=== PATIENT | male | born 1940 | race Caucasian/White ===

== ENCOUNTER 2023-08-06 14:27 | Inpatient (IN) | payer MEDICARE, SELFPAY ==
--- NOTE | ~2023-08-06 | CT_ITS ---
EXAMINATION: CT ABDOMEN AND PELVIS WITHOUT CONTRAST CLINICAL INFORMATION: Rectal pain. COMPARISON: None available. TECHNIQUE: Multidetector volumetric imaging was performed from the superior aspect of the liver through the pubic symphysis. Sagittal and coronal reformatted images were obtained on the technologist's workstation. This CT examination was performed using dose optimization techniques as appropriate, variously including the following: *Automated exposure control *Adjustment of mA and/or kV according to patient size (this includes techniques or standardized protocols for targeted exams where dose is matched to indication/reason for exam; i.e. extremities or head) *Use of iterative reconstruction technique DLP: 499 mGy-cm. FINDINGS: LUNG BASES: The visualized lung bases are unremarkable. LIVER, GALLBLADDER, AND BILIARY TREE: The liver is normal in size, shape, and attenuation. No focal hepatic lesion or biliary ductal dilatation is present. There is mild edema seen around the gallbladder, which is probably secondary to the retroperitoneal inflammatory process rather than gallbladder disease. Gallbladder is unremarkable with no evidence of radiopaque gallstones. PANCREAS: Marked edematous changes seen surrounding the pancreas. MESENTERY/RETROPERITONEUM/PERITONEUM: Diffuse edematous changes are seen in the small bowel mesentery as well as around the pancreas. There is a heterogeneous, ill-defined, solid-appearing mass in the mesentery measuring about 15.5 x 5.1 x 7.5 cm (2:48) Edematous changes are also present in the perirectal space. There is free fluid present in the abdomen around the liver and spleen, in the lateral conal fascia and with a small amount in the pelvis. The left psoas muscle is larger than the right, and in the retrorenal area there is a lobular mass present measuring 3.4 x 4.2 x 5.1 cm. SPLEEN: The spleen is normal in size. ADRENAL GLANDS: Unremarkable. KIDNEYS AND URETERS: There is mild bilateral hydronephrosis and perirenal stranding. The ureters are dilated down to the level of the bladder without any obstructing mass or stone seen. BLADDER: The bladder is grossly abnormal with a markedly thickened 2.3 cm wall. GASTROINTESTINAL TRACT: A moderate-sized hiatal hernia is present. Diverticular changes are present throughout the sigmoid with scattered diverticula elsewhere. No definite diverticulitis is seen, although inflammatory change surrounds a large portion of the bowel as it is associated with the inflammatory change in the mesentery. The rectum is markedly thickened. The ascending colon is abnormal with wall thickening and surrounding inflammatory change. The small and large bowel are otherwise unremarkable. No evidence of bowel obstruction. The appendix is not seen, but there is no evidence of appendicitis evidence of appendicitis. ABDOMINAL WALL: Mild anasarca is present in the anterior abdominal wall. LYMPH NODES: Shotty retroperitoneal lymph nodes are seen without gross lymphadenopathy. VASCULAR: Calcific atherosclerotic changes are present in the aorta and iliofemoral vessels. There is no evidence of an abdominal aortic aneurysm. PELVIC VISCERA: Unremarkable. OSSEOUS STRUCTURES: Severe degenerative changes are present from L2 through S1. There are endplate compression fractures from Schmorl's nodes involving T10. SI joints are sclerotic and possibly fused. CT/CT abdomen pelvis wo IV con IMPRESSION: 1. There is a large mass-like area in the small bowel mesentery with a smaller mass in the left psoas muscle. Ascites is also present. Findings are most suggestive of a neoplastic process such as lymphoma. 2. There is marked thickening of the rectum and ascending colon with surrounding inflammatory change throughout the retroperitoneum. 3. There is mild bilateral hydronephrosis and hydroureter down to the level of the bladder, with a markedly thickened bladder wall. 4. Other incidental findings as described above. 5. CT-guided biopsy of the paraspinal mass on the left (2:31) may be the quickest route to a diagnosis. This critical result was discussed with Dr. Raven Lim at 5:30 PM on the day of the exam and it was ascertained that the content and urgency of the report was understood at the time of direct communication. Fleischner guidelines were followed.
[2023-08-06 14:30] VITALS: BP 142/44; PULSE 52; RESP 19; TEMP 36.6; O2SAT 95; BMI 23.6
--- NOTE | 2023-08-06 14:30 | ED.GENADULT ---
HPI - General Adult General Chief complaint: Nausea/Vomiting/Diarrhea Stated complaint: swelling Time Seen by Provider: 08/06/23 16:00 Source: patient and family Mode of arrival: ambulatory Limitations: no limitations History of Present Illness ED Provider: Dr. Raven Lim HPI narrative: Patient comes to the emergency room complaining rectal and left lower quadrant pain. Patient states that he was recently diagnosed with hematuria, unclear if he had an actual UTI. Patient states that he was on Bactrim for 10 days. Shortly after, patient started developing diarrhea, no loose stool. Patient states that he has been trying to keep up with his electrolytes by drinking Pedialyte. Patient states that he has increasing rectal pain and left lower quadrant pain and that has the reason he came to the emergency room. Patient states that when he wipes sometimes he sees blood in the toilet paper. Patient denies hematuria. Patient denies fever or chills, denies flank pain. Patient takes Plavix, patient does not take any other blood thinners Related Data Allergies Allergy/AdvReac Type Severity Reaction Status Date / Time No Known Allergies Allergy Verified 08/06/23 14:32 Review of Systems Review of Systems: Constitutional : No Weight loss, No Fever, No Chills, No Night Sweats, No Fatigue, No Malaise ENT/Mouth : No Hearing loss, No Ear Pain, No Nasal Congestion, No Sinus Pain, No Hoarseness, No sore throat, No Rhinorrhea, No Swallowing Difficulty Eyes: No Eye Pain, No Swelling, No Redness, No Foreign Body, No Discharge, No Vision Changes Cardiovascular : No Chest Pain, No SOB, No Dyspnea on Exertion, No Orthopnea, No Edema, No Palpitations Respiratory : No Cough, No Sputum, No Wheezing, No Smoke Exposure, No Dyspnea Gastrointestinal : No Nausea, No Vomiting, complaining of loose stools, left lower quadrant pain and rectal pain Genitourinary : no irregular bleeding, No Dysuria, No Urinary Frequency, No Hematuria, No Urinary Incontinence, No Urgency, No Flank Pain, No Urinary Flow Changes, No Hesitancy Musculoskeletal : No joint pain, No Myalgias, No Joint Swelling Skin : No Skin Lesions, No rash Neuro : No Weakness, No Numbness, No Paresthesias, No Loss of Consciousness, No Dizziness, No Headache Psych : No Anxiety/Panic, No Depression, No SI/HI/AH/VH, No Social Issues, Heme/Lymph: No Bruising, No Bleeding,No Lymphadenopathy Endocrine : No Polyuria, No Polydipsia, No Temperature Intolerance [facility] Past Medical History Medical History (Updated 08/06/23 @ 22:31 by Raven Lim MD) Multiple myeloma Social History Social History Alcohol intake: former Smoked in Last 30 Days: Yes Use of substances other than those prescribed or required for medical reasons: No Advance Directives: No Advance Directives Information Provided: No Physical Exam ED Vital Signs: Vital Signs - 24 hr 08/06/23 14:30 08/06/23 17:10 08/06/23 17:20 Temperature 98 F 98.3 F Pulse Rate 52 74 73 Respiratory Rate 19 14 18 Blood Pressure 142/44 H 96/47 L 96/47 L Pulse Oximetry 95 98 97 Oxygen Delivery Method Room Air Room Air 08/06/23 21:10 Temperature 97.9 F Pulse Rate 71 Respiratory Rate 20 Blood Pressure 101/50 L Pulse Oximetry 98 Oxygen Delivery Method Room Air BMI result Body Mass Index 23.6 Const Other: Appearance: Alert. Oriented X3. No acute distress. Eyes: Pupils equal, round and reactive to light. ENT: Pharynx normal. Neck: Normal inspection. Neck supple. No lymph nodes noted. No crepitus CVS: Normal heart rate and rhythm. Pulses normal. Normal S1 and S2 Respiratory: No respiratory distress. Breath sounds normal. No Wheezing. No rales Abdomen: Soft tenderness to palpation over the left lower quadrant No rigidity. No distention. rectal exam external small hemorrhoids, non thrombosed Skin: Skin warm and dry. Normal skin color. Normal skin turgor. Extremities: No lower extremity edema. No Lacerations. No Rash Neuro: Oriented X 3. No motor deficit. No sensory deficit. Moving all extremities. No slurred speech. CN 2 through 12 grossly intact Psych: calm, cooperative, normal affect Course Course Course Narrative: This is a Rapid Medical Examination (RME) performed by Gregg Valdovinos PA-C in triage. Full HPI, ROS, assessment and treatment plan per primary provider in the Main ED. 83 yo male hx of multiple myeloma here with rectal pain/ burning and diarrhea since July 25. denies hematochexia or melena however reports BRBPR on toilet paper. reports prior to onset of pain/diarrhea, patient on abx for UTI. denies fever, chills, n/v. no sick contacts. admits to 11/29 pain. well appearing in triage. abd soft ND/NT. exam limited in triage. Plan: labs, GI panel, cdiff ordered Medications Administered Discontinued Medications Generic Name Dose Route Start Last Admin Trade Name Freq PRN Reason Stop Dose Admin Sodium Chloride 1,000 mls @ 999 mls/hr 08/06/23 16:15 08/06/23 17:34 Ns IVCONT 08/06/23 17:15 Infused .Q1H1M ONE Infusion Sodium Chloride 1,000 mls @ 999 mls/hr 08/06/23 18:54 08/06/23 20:15 Ns IVCONT 08/06/23 19:54 Infused .Q1H1M ONE Infusion Lidocaine 1 appl 08/06/23 16:36 08/06/23 17:20 Lidocaine 5 % Ointment 35 Gm TOPICAL 08/06/23 16:37 1 appl ONCE ONE Administration Protocol Medical Decision Making Medical Decision Making MDM Narrative: - my interpretation of labs, hemoglobin 8.9, no prior labs for comparison. Creatinine 2.13, to patient's knowledge he has never been told about his creatinine been elevated. Possibly secondary to dehydration from loose to us. Urinalysis negative for UTI - patient did not have any bowel movements, C diff and stool tests pending, unlikely to be C diff - patient's occult blood test was positive, which could be secondary to hemorrhoids. however, patient does have a hemoglobin of 8.9, no previous records to compare to. - We requested records from [facility], [facility], no response back - I discussed the CT findings with our radiologist, patient has 2 abdominal masses, this is concern for lymphoma - I discussed the above-mentioned with the patient and his daughter and son who are at bedside. Discussed with them that imaging by itself does not confirm the diagnosis, patient will need biopsy and more lab work. - Patient already has a hematology/oncologist, patient has an appointment tomorrow for chemotherapy for multiple myeloma. - After receiving IV fluids, creatinine slightly improved but not enough, started with 2.3, now 1.89. We do not know if this is new or chronic. However, the patient and his family are unaware of any previous creatinine/kidney abnormalities - I discussed the patient with Dr. Ramirez from the Medicine team, patient being admitted - discussed with the patient's family that they will need to reschedule the patient's oncology outpatient appointment. It is likely that our oncologist will see him in the morning as well. 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 08/06/23 15:23 08/06/23 20:18 Labs: Lab Results 08/06/23 08/06/23 08/06/23 Range/Units 15:07 15:23 16:50 WBC 7.1 (4.8-10.8) X10*3/uL RBC 2.63 L (4.60-5.80) X10*6/uL Hgb 8.9 L (14.0-18.0) g/dl Hct 26.2 L (42.0-52.0) % MCV 99.6 H (80.0-98.0) fL MCH 33.8 H (27.0-33.0) pg MCHC 34.0 (31.0-36.0) g/dl RDW 14.1 (11.0-16.0) % Plt Count 317 (160-400) X10*3/uL MPV 8.9 L (9.4-12.4) fL Immature Gran % (Auto) 0.6 H (0.0-0.4) % Neut % (Auto) 74.0 H (45-73) % Lymph % (Auto) 14.4 L (20-40) % [place] % (Auto) 9.1 (2-11) % Eos % (Auto) 1.5 (0-4) % Baso % (Auto) 0.4 (0-2) % Lymph # (Auto) 1.0 L (1.2-4.9) X10*3/uL [place] # (Auto) 0.7 (0.1-1.2) X10*3/uL Eos # (Auto) 0.1 (0.0-0.4) X10*3/uL Baso # (Auto) 0.0 (0.0-0.2) X10*3/uL Abs Immat Gran (auto) 0.04 H (0.00-0.03) X10*3/uL Absolute Neuts (auto) 5.3 (2.0-8.3) x10*3/uL Absolute Nucleated RBC 0.000 (0.0-0.012) X10*3/uL Nucleated RBC % (auto) 0.0 (0.0-0.2) /100WBC Sodium 135 (135-145) mmol/L Potassium 5.1 (3.3-5.1) mmol/L Chloride 104 (96-108) mmol/L Carbon Dioxide 16 L (22-29) mmol/L Anion Gap 20 (12-20) BUN 35 H (9-16) mg/dL Creatinine 2.13 H (0.5-1.4) mg/dL Estim Creat Clear Calc 26.3 Estimated GFR 30 Random Glucose 84 (60-115) mg/dL Calcium 9.3 (8.4-10.2) mg/dL Magnesium 1.9 (1.6-2.6) mg/dL Total Bilirubin 0.1 (0.0-1.0) mg/dL AST 23 (5-37) U/L ALT 19 (0-40) U/L Alkaline Phosphatase 43 (39-117) U/L Total Protein 7.1 (6.5-8.0) g/dL Albumin 4.1 (3.5-5.0) g/dL Lipase 13 (8-78) U/L Urine Color Yellow Urine Appearance Turbid Urine pH 5.5 (5.0-9.0) Ur Specific [place] 1.020 (1.005-1.025) Urine Protein 100 (2+) H (Neg-Trace) mg/dL Urine Glucose (UA) Negative (Negative) mg/dL Urine Ketones Trace (Negative) mg/dL Urine Blood Trace H (Negative) Urine Nitrite Negative (Negative) Ur Leukocyte Esterase Negative (Negative) Urine RBC 0-2 (0-2) /HPF Urine WBC 0-5 (0-5) /HPF Ur Squamous Epith Cells 11-20 (0-2) /HPF Other Crystals Present Urine Bacteria None Seen (None Seen) Hyaline Casts 0-2 (0-2) /LPF Granular Casts Present Stool Occult Blood POSITIVE (NEGATIVE) 08/06/23 Range/Units 20:18 WBC (4.8-10.8) X10*3/uL RBC (4.60-5.80) X10*6/uL Hgb (14.0-18.0) g/dl Hct (42.0-52.0) % MCV (80.0-98.0) fL MCH (27.0-33.0) pg MCHC (31.0-36.0) g/dl RDW (11.0-16.0) % Plt Count (160-400) X10*3/uL MPV (9.4-12.4) fL Immature Gran % (Auto) (0.0-0.4) % Neut % (Auto) (45-73) % Lymph % (Auto) (20-40) % [place] % (Auto) (2-11) % Eos % (Auto) (0-4) % Baso % (Auto) (0-2) % Lymph # (Auto) (1.2-4.9) X10*3/uL [place] # (Auto) (0.1-1.2) X10*3/uL Eos # (Auto) (0.0-0.4) X10*3/uL Baso # (Auto) (0.0-0.2) X10*3/uL Abs Immat Gran (auto) (0.00-0.03) X10*3/uL Absolute Neuts (auto) (2.0-8.3) x10*3/uL Absolute Nucleated RBC (0.0-0.012) X10*3/uL Nucleated RBC % (auto) (0.0-0.2) /100WBC Sodium 137 (135-145) mmol/L Potassium 5.6 H (3.3-5.1) mmol/L Chloride 109 H (96-108) mmol/L Carbon Dioxide 15 L (22-29) mmol/L Anion Gap 19 (12-20) BUN 33 H (9-16) mg/dL Creatinine 1.89 H (0.5-1.4) mg/dL Estim Creat Clear Calc 29.6 Estimated GFR 34 Random Glucose 68 (60-115) mg/dL Calcium 8.4 D (8.4-10.2) mg/dL Magnesium (1.6-2.6) mg/dL Total Bilirubin (0.0-1.0) mg/dL AST (5-37) U/L ALT (0-40) U/L Alkaline Phosphatase (39-117) U/L Total Protein (6.5-8.0) g/dL Albumin (3.5-5.0) g/dL Lipase (8-78) U/L Urine Color Urine Appearance Urine pH (5.0-9.0) Ur Specific [place] (1.005-1.025) Urine Protein (Neg-Trace) mg/dL Urine Glucose (UA) (Negative) mg/dL Urine Ketones (Negative) mg/dL Urine Blood (Negative) Urine Nitrite (Negative) Ur Leukocyte Esterase (Negative) Urine RBC (0-2) /HPF Urine WBC (0-5) /HPF Ur Squamous Epith Cells (0-2) /HPF Other Crystals Urine Bacteria (None Seen) Hyaline Casts (0-2) /LPF Granular Casts Stool Occult Blood (NEGATIVE) Independent Interpretation I performed an independent interpretation of an: CT Scan Radiology Impression Discussion of test interpretation with radiology: I discussed test interpretation with the radiologist and I have reviewed the radiologist's reading. Radiologist Impression: FINDINGS: LUNG BASES: The visualized lung bases are unremarkable. LIVER, GALLBLADDER, AND BILIARY TREE: The liver is normal in size, shape, and attenuation. No focal hepatic lesion or biliary ductal dilatation is present. There is mild edema seen around the gallbladder, which is probably secondary to the retroperitoneal inflammatory process rather than gallbladder disease. Gallbladder is unremarkable with no evidence of radiopaque gallstones. PANCREAS: Marked edematous changes seen surrounding the pancreas. MESENTERY/RETROPERITONEUM/PERITONEUM: Diffuse edematous changes are seen in the small bowel mesentery as well as around the pancreas. There is a heterogeneous, ill-defined, solid-appearing mass in the mesentery measuring about 15.5 x 5.1 x 7.5 cm (2:48) Edematous changes are also present in the perirectal space. There is free fluid present in the abdomen around the liver and spleen, in the lateral conal fascia and with a small amount in the pelvis. The left psoas muscle is larger than the right, and in the retrorenal area there is a lobular mass present measuring 3.4 x 4.2 x 5.1 cm. SPLEEN: The spleen is normal in size. ADRENAL GLANDS: Unremarkable. KIDNEYS AND URETERS: There is mild bilateral hydronephrosis and perirenal stranding. The ureters are dilated down to the level of the bladder without any obstructing mass or stone seen. BLADDER: The bladder is grossly abnormal with a markedly thickened 2.3 cm wall. GASTROINTESTINAL TRACT: A moderate-sized hiatal hernia is present. Diverticular changes are present throughout the sigmoid with scattered diverticula elsewhere. No definite diverticulitis is seen, although inflammatory change surrounds a large portion of the bowel as it is associated with the inflammatory change in the mesentery. The rectum is markedly thickened. The ascending colon is abnormal with wall thickening and surrounding inflammatory change. The small and large bowel are otherwise unremarkable. No evidence of bowel obstruction. The appendix is not seen, but there is no evidence of appendicitis evidence of appendicitis. ABDOMINAL WALL: Mild anasarca is present in the anterior abdominal wall. LYMPH NODES: Shotty retroperitoneal lymph nodes are seen without gross lymphadenopathy. VASCULAR: Calcific atherosclerotic changes are present in the aorta and iliofemoral vessels. There is no evidence of an abdominal aortic aneurysm. PELVIC VISCERA: Unremarkable. OSSEOUS STRUCTURES: Severe degenerative changes are present from L2 through S1. There are endplate compression fractures from Schmorl's nodes involving T10. SI joints are sclerotic and possibly fused. CT/CT abdomen pelvis wo IV con IMPRESSION: 1. There is a large mass-like area in the small bowel mesentery with a smaller mass in the left psoas muscle. Ascites is also present. Findings are most suggestive of a neoplastic process such as lymphoma. 2. There is marked thickening of the rectum and ascending colon with surrounding inflammatory change throughout the retroperitoneum. 3. There is mild bilateral hydronephrosis and hydroureter down to the level of the bladder, with a markedly thickened bladder wall. 4. Other incidental findings as described above. 5. CT-guided biopsy of the paraspinal mass on the left (2:31) may be the quickest route to a diagnosis. This critical result was discussed with Dr. Raven Lim at 5:30 PM on the day of the exam and it was ascertained that the content and urgency of the report was understood at the time of direct communication. Independent Historian Clinical information obtained from an independent historian. History obtained from or confirmed by: Other ( son and daughter) Critical Care Time Critical Care Time Critical Care Time: Yes Total Critical Care Time: 75 Attestation: I have personally provided critical care time. Time includes review of lab data, radiology results, discussion with consultants, and monitoring for potential decompensation. Intervention performed as documented. Discharge Plan Discharge Clinical Impression: Lymphoma, JHONNY (acute kidney injury) Patient Disposition: Admitted As Inpatient Print Language: Vietnamese
[2023-08-06 15:14] LABS: Appearance Urine Turbid; Color Urine Yellow; Glucose Urine UA Negative (Negative); Leukocyte Esterase Urine Negative (Negative); Nitrite Urine Negative (Negative); PH 5.5 (5.0-9.0); UMIC TRIGGER UACC YES; Urine Blood Trace (Negative); Urine Ketones Trace mg/dL (Negative); Urine Protein 100 (2+) mg/dL (Neg-Trace)
[2023-08-06 15:25] LABS: Bacteria Urine None Seen (None Seen); Granular Casts Urine Present; Hyaline Casts Urine 0-2 /LPF (0-2); Other Crystals Urine Present; RBC Urine 0-2 /HPF (0-2); WBC Urine 0-5 /HPF (0-5)
--- NOTE | 2023-08-06 15:28 | PC.NURSE ---
Patient reports was in [place] a few weeks ago and was having burning with urination. Was seen by an urgent care and started on abt for kidney infection per patient. patient with med list from 07/25 stating he was taking cipro but also has med list showing bactrum. Patient states has multiple myloma and has loose stools but after starting abt has had constant loose stools and his rectum is very sore from the constant diarrhea. Patient unsure if he has been taking cipro retirement or if it was just prescribed for the uti
[2023-08-06 15:31] LABS: MANUAL DIFF FLAG NO
[2023-08-06 15:33] LABS: Basophils Percent Auto 0.4 % (0-2); Eosinophils Absolute Auto 0.1 X10*3/uL (0.0-0.4); Eosinophils Percent Auto 1.5 % (0-4); Hematocrit 26.2 % (42.0-52.0); Hemoglobin 8.9 g/dl (14.0-18.0); Imm Gran Abs Auto 0.04 X10*3/uL (0.00-0.03); Imm Gran Pct Auto 0.6 % (0.0-0.4); Lymphocytes Percent Auto 14.4 % (20-40); Mean Corpuscular Hemoglobin 33.8 pg (27.0-33.0); Mean Corpuscular Volume 99.6 fL (80.0-98.0); Mean Platelet Volume 8.9 fL (9.4-12.4); Monocytes Absolute Auto 0.7 X10*3/uL (0.1-1.2); Monocytes Percent Auto 9.1 % (2-11); Neutrophils Absolute Auto 5.3 x10*3/uL (2.0-8.3); Platelet Count 317 X10*3/uL (160-400); Red Blood Count 2.63 X10*6/uL (4.60-5.80); Red Cell Distribution Width 14.1 % (11.0-16.0); White Blood Count 7.1 X10*3/uL (4.8-10.8)
[2023-08-06 15:46] LABS: Alanine Aminotransferase 19 U/L (0-40); Albumin Level 4.1 g/dL (3.5-5.0); Alkaline Phosphatase 43 U/L (39-117); Anion Gap 20 (12-20); Aspartate Amino Transferase 23 U/L (5-37); Bilirubin Total 0.1 mg/dL (0.0-1.0); Blood Urea Nitrogen 35 mg/dL (9-16); Calcium 9.3 mg/dL (8.4-10.2); Carbon Dioxide 16 mmol/L (22-29); Chloride 104 mmol/L (96-108); Creatinine Clr Calc Pharmacy 26.3; Estimated Glomerular Filt Rate 30; Glucose Random 84 mg/dL (60-115); Lipase 13 U/L (8-78); Magnesium 1.9 mg/dL (1.6-2.6); Potassium 5.1 mmol/L (3.3-5.1); Sodium 135 mmol/L (135-145); Total Protein 7.1 g/dL (6.5-8.0)
[2023-08-06] MEDS: 0.9 % Sodium Chloride 1,000 ML 999 ML IVCONT ×2 (16:31→19:21)
[2023-08-06 17:10] VITALS: BP 96/47; PULSE 74; RESP 14; O2SAT 98
[2023-08-06 17:11] LABS: OBS Int Ctl Valid YES; OBS1 POSITIVE (NEGATIVE)
[2023-08-06 17:20] VITALS: BP 96/47; PULSE 73; RESP 18; TEMP 36.8; O2SAT 97
[2023-08-06] MEDS: Lidocaine 5 % Ointment 35 GM 1 APPL TOPICAL (17:20)
--- NOTE | 2023-08-06 18:12 | PC.NURSE ---
Provider notified of hypotension
[2023-08-06 20:36] LABS: Anion Gap 19 (12-20); Blood Urea Nitrogen 33 mg/dL (9-16); Calcium 8.4 mg/dL (8.4-10.2); Carbon Dioxide 15 mmol/L (22-29); Chloride 109 mmol/L (96-108); Creatinine Clr Calc Pharmacy 29.6; Estimated Glomerular Filt Rate 34; Glucose Random 68 mg/dL (60-115); Potassium 5.6 mmol/L (3.3-5.1); Sodium 137 mmol/L (135-145)
[2023-08-06 21:10] VITALS: BP 101/50; PULSE 71; RESP 20; TEMP 36.6; O2SAT 98
--- NOTE | 2023-08-06 21:36 | PC.NURSE ---
pt anxious, wants to leave to have a cigarette outside. pt easily redirectable, family at bedside
--- NOTE | 2023-08-06 21:49 | P.HPHOSP_ITS ---
History of Present Illness Date of Service: 08/06/23 <CHRISTIN Dobbins - Last Filed: 08/06/23 23:13> Attending physician on admission: Jessi Ramirez <CHRISTIN Dobbins - Last Filed: 08/06/23 23:13> Chief Complaint: Abd pain, diarrhea <CHRISTIN Dobbins - Last Filed: 08/06/23 23:13> Pt is an 83-year-old male with a PMH significant for?multiple myeloma on Revlimid, CAD, TX, and hypothyroidism who presents to the ED with?left lower quadrant abdominal pain and and rectal ?burning? with loose stools x7-10 days. Patient reports having to use the bathroom multiple times a day, sometimes as many as 3-4 times in a row where he will not make it back to his recliner before having to go back to the bathroom. Denies liquid diarrhea, but stool is loose. Denies melena or hematochezia, but has noticed bright red blood on toilet paper after wiping. Reports has recently had no appetite and not feeling like eating or drinking much. Also complains of recent acid reflux. Has noticed significant lower leg edema for the past 10-12 days. Denies shortness of breath, VALERIO, or orthopnea. Patient reports history of multiple myeloma for the past 11 years, though has been on Revlimid for only the past 2 years or so. However, patient has not been on Revlimid for the past 5 months after going to [place] to visit his who has advanced Alzheimer's and staying there for much longer than anticipated. Denies nausea, vomiting. No chest pain/pressure, palpitations. No fever, chills. In the ED pt was afebrile but was soft BP as low as 96/47. Labs were significant for H&H of 8.9/ 26.2(baseline unknown), potassium 5.6, BUN 35, creatinine 2.13 with repeat 1.89 after IVF (baseline unknown). No leukocytosis. UA negative for UTI. Stool positive for occult blood. Stool studies pending. CT?of abdomen and pelvis found a large masslike area in the small bowel mesentery they smaller mass in the left psoas muscle, as well as ascites. Findings most suggestive of neoplastic process such as lymphoma. Also found marked thickening of the rectum and ascending colon with surrounding inflammatory change throughout the retroperitoneum, and mild bilateral hydronephrosis with hydroureter down to the level of the bladder with a markedly thickened bladder wall. Pt was treated with 2 L IVF. Pt will be admitted to the hospital for treatment and further evaluation of JHONNY and intractable abdominal pain and diarrhea in the setting abdominal masses suspicious for lymphoma. < CHRISTIN Dobbins - Last Filed: 08/06/23 23:13> Review of Systems 2 Review of Systems: Lower left abdominal and rectal pain Diarrhea Lower leg edema Early satiety, anorexia Bright red blood per rectum Heartburn Denies nausea, vomiting No chest pain/pressure, palpitations Denies shortness of breath or difficulty breathing No orthopnea <CHRISTIN Dobbins - Last Filed: 08/06/23 23:13> [facility] Medical History: Medical History (Updated 08/06/23 @ 22:52 by CHRISTIN Dobbins) Myocardial infarction CAD (coronary artery disease) Hypertension Hypothyroidism Multiple myeloma <CHRISTIN Dobbins - Last Filed: 08/06/23 23:13> Social History: Social History Alcohol intake: former Patient Tobacco Use Status: Current everyday Tobacco user Smoked in Last 30 Days: Yes Use of substances other than those prescribed or required for medical reasons: No Advance Directives: No Advance Directives Information Provided: No Nutrition Risks: No Nutritional Risk <CHRISTIN Dobbins - Last Filed: 08/06/23 23:13> Meds Allergies/Adverse reactions: Allergies Allergy/AdvReac Type Severity Reaction Status Date / Time No Known Allergies Allergy Verified 08/06/23 14:32 <CHRISTIN Dobbins - Last Filed: 08/06/23 23:13> Active Medications: Current Medications Acetaminophen (Acetaminophen 325 Mg Tablet) 650 mg PO Q6H PRN PRN Reason: Pain, Mild (Pain Scale 1-3) Heparin Sodium (Porcine) (Heparin Sodium,Porcine 5,000 Unit/Ml Vial) 5,000 unit SUBCUT Q12H SINA Lidocaine (Lidocaine 5 % Ointment 35 Gm) 1 appl TOPICAL Q6H PRN; Protocol PRN Reason: Pain, Mild (Pain Scale 1-3) Melatonin (Melatonin 3 Mg Tablet) 6 mg PO BEDTIME PRN PRN Reason: Insomnia Ondansetron HCl (Ondansetron Hcl 4 Mg/2 Ml Vial) 4 mg IVPUSH Q8H PRN PRN Reason: Nausea and Vomiting Sodium Chloride (0.9 % Sodium Chloride Flush 3 Ml Syringe) 3 ml IVFLUSH QSHIFT SINA <CHRISTIN Dobbins - Last Filed: 08/06/23 23:13> Home medications: Home Medications ?Medication ?Instructions ?Recorded ?Confirmed ?Last Taken ?Type calcium carbonate 600 mg PO BID 08/06/23 08/06/23 Unknown History cholecalciferol (vitamin D3) 25 25 mcg PO DAILY 08/06/23 08/06/23 Unknown History mcg (1,000 unit) tablet clopidogrel 75 mg tablet 75 mg PO DAILY 08/06/23 08/06/23 Unknown History pravastatin 40 mg tablet 40 mg PO DAILY 08/06/23 08/06/23 Unknown History sertraline 100 mg tablet 100 mg PO DAILY 08/06/23 08/06/23 Unknown History spironolactone 25 mg tablet 25 mg PO DAILY 08/06/23 08/06/23 Unknown History <CHRISTIN Dobbins - Last Filed: 08/06/23 23:13> Physical Exam 2 Vital Signs and Narrative: Vital Signs: Last Vital Signs Temp 97.9 F 08/06/23 21:10 Pulse 71 08/06/23 21:10 Resp 20 08/06/23 21:10 BP 101/50 L 08/06/23 21:10 Pulse Ox 98 08/06/23 21:10 O2 Del Method Room Air 08/06/23 21:10 BMI result Body Mass Index 23.6 <CHRISTIN Dobbins - Last Filed: 08/06/23 23:13> Constitutional: Alert, in no acute distress. Mental Status: Oriented to person, place and time. Eyes: Pupils are equal, round, and reactive to light. Ear, Nose, and Throat: Oropharynx clear, mucous membranes moist. Ears and nose without deformities. Trachea midline. Respiratory: Mild expiratory wheezing, especially in lower lobes. Cardiovascular: S1, S2 regular. No murmurs, rubs, or gallops. Gastrointestinal: Abdomen soft, non-distended, with mild lower left quadrant tenderness. Normal bowel sounds. Neurologic: Cranial nerves II-XII are grossly intact bilaterally. No focal neurological deficits. Moves all extremities spontaneously. Skin: Warm, dry. Musculoskeletal: No cyanosis or clubbing. Extremities: 3+ bilateral ankle and pedal edema. Psychiatric: Normal mood and affect. <CHRISTIN Dobbins - Last Filed: 08/06/23 23:13> Results Labs CBC and Chem 7: 08/06/23 15:23 08/06/23 20:18 <CHRISTIN Dobbins - Last Filed: 08/06/23 23:13> Labs: Laboratory Results - last 24 hr 08/06/23 08/06/23 08/06/23 15:07 15:23 16:50 MCV 99.6 H MCH 33.8 H MCHC 34.0 RDW 14.1 Plt Count 317 MPV 8.9 L Immature Gran % (Auto) 0.6 H Neut % (Auto) 74.0 H Lymph % (Auto) 14.4 L [place] % (Auto) 9.1 Eos % (Auto) 1.5 Baso % (Auto) 0.4 Lymph # (Auto) 1.0 L [place] # (Auto) 0.7 Eos # (Auto) 0.1 Baso # (Auto) 0.0 Abs Immat Gran (auto) 0.04 H Absolute Neuts (auto) 5.3 Absolute Nucleated RBC 0.000 Nucleated RBC % (auto) 0.0 Anion Gap 20 Estim Creat Clear Calc 26.3 Estimated GFR 30 Random Glucose 84 Calcium 9.3 Magnesium 1.9 Total Bilirubin 0.1 AST 23 ALT 19 Alkaline Phosphatase 43 Total Protein 7.1 Albumin 4.1 Lipase 13 Urine Color Yellow Urine Appearance Turbid Urine pH 5.5 Ur Specific [place] 1.020 Urine Protein 100 (2+) H Urine Glucose (UA) Negative Urine Ketones Trace Urine Blood Trace H Urine Nitrite Negative Ur Leukocyte Esterase Negative Urine RBC 0-2 Urine WBC 0-5 Ur Squamous Epith Cells 11-20 Other Crystals Present Urine Bacteria None Seen Hyaline Casts 0-2 Granular Casts Present Stool Occult Blood POSITIVE 08/06/23 20:18 MCV MCH MCHC RDW Plt Count MPV Immature Gran % (Auto) Neut % (Auto) Lymph % (Auto) [place] % (Auto) Eos % (Auto) Baso % (Auto) Lymph # (Auto) [place] # (Auto) Eos # (Auto) Baso # (Auto) Abs Immat Gran (auto) Absolute Neuts (auto) Absolute Nucleated RBC Nucleated RBC % (auto) Anion Gap 19 Estim Creat Clear Calc 29.6 Estimated GFR 34 Random Glucose 68 Calcium 8.4 D Magnesium Total Bilirubin AST ALT Alkaline Phosphatase Total Protein Albumin Lipase Urine Color Urine Appearance Urine pH Ur Specific [place] Urine Protein Urine Glucose (UA) Urine Ketones Urine Blood Urine Nitrite Ur Leukocyte Esterase Urine RBC Urine WBC Ur Squamous Epith Cells Other Crystals Urine Bacteria Hyaline Casts Granular Casts Stool Occult Blood <CHRISTIN Dobbins - Last Filed: 08/06/23 23:13> Imaging Radiologist's Impressions: Impressions Abdomen/Pelvis CT 08/06/23 16:57 IMPRESSION: 1. There is a large mass-like area in the small bowel mesentery with a smaller mass in the left psoas muscle. Ascites is also present. Findings are most suggestive of a neoplastic process such as lymphoma. 2. There is marked thickening of the rectum and ascending colon with surrounding inflammatory change throughout the retroperitoneum. 3. There is mild bilateral hydronephrosis and hydroureter down to the level of the bladder, with a markedly thickened bladder wall. 4. Other incidental findings as described above. 5. CT-guided biopsy of the paraspinal mass on the left (2:31) may be the quickest route to a diagnosis. This critical result was discussed with Dr. Raven Lim at 5:30 PM on the day of the exam and it was ascertained that the content and urgency of the report was understood at the time of direct communication. Fleischner guidelines were followed. <CHRISTIN Dobbins - Last Filed: 08/06/23 23:13> Assessment and Plan (1) JHONNY (acute kidney injury): Status: Acute <CHRISTIN Dobbins - Last Filed: 08/06/23 23:13> Pt is an 83-year-old male with a PMH significant for?multiple myeloma on Revlimid, CAD, TX, and hypothyroidism who presents to the ED with?left lower quadrant abdominal pain and and rectal ?burning? with loose stools x7-10 days. Pt will be admitted to the hospital for treatment and further evaluation of JHONNY and intractable abdominal pain and diarrhea in the setting abdominal masses suspicious for lymphoma. Abdominal and rectal pain with diarrhea Ongoing times 7-10 days with multiple episodes of diarrhea per day CT with large masslike area in small bowel mesentery and smaller mass in left psoas muscle suggestive of neoplastic process like lymphoma, as well with marked thickening of the rectum and ascending colon Pt with history of multiple myeloma x11 years, on Revlimid x2 years, though has not taking for the past 5 months due to travel Analgesics for pain management Oncology consult JHONNY Patient's creatinine 2.13 at time of presentation with repeat 1.89 after IVF Baseline unknown Patient received 2 L IVF in the ED Will place on maintenance fluids Follow BNP Hyperkalemia Initial potassium 5.1 with repeat 5.6 after IVF Likely in the setting of spironolactone with dehydration Hold spironolactone Hold on Lokelma due to diarrhea Follow potassium Hypotension Patient's BP as low as 96/47 Likely in the setting of dehydration due to GI losses and reduced p.o. intake while continuing to take spironolactone Patient received 2 L IVF in the ED Will place on maintenance fluids overnight Monitor BP Macrocytic anemia H&H 8.9/26.2, baseline unknown Patient with history of multiple myeloma Stool positive for occult blood Follow H&H Lower leg edema Likely in the setting of possible lymphoma Will hold diuretics for now due to hyperkalemia Multiple myeloma Diagnosed 11 years ago Started on Revlimid x2 years, but not taking for the past 5 months due to travel CAD/Hx of TX Continue statin Hold Plavix Mood disorder Continue sertraline Full Code Attending:? DVT Prophylaxis: Lovenox Pt will require a hospitalization of at least two nights for treatment of?JHONNY and intractable abdominal pain and diarrhea in the setting of abdominal masses concerning for lymphoma. Patient will require administration of IV fluids, close monitoring of labs, and specialist consultation with Oncology. <CHRISTIN Dobbins - Last Filed: 08/06/23 23:13> Pt is an 83-year-old male with a PMH significant for?multiple myeloma on Revlimid, CAD, TX, and hypothyroidism who presents to the ED with?left lower quadrant abdominal pain and and rectal ?burning? with loose stools x7-10 days. Pt will be admitted to the hospital for treatment and further evaluation of JHONNY and intractable abdominal pain and diarrhea in the setting abdominal masses suspicious for lymphoma. Abdominal and rectal pain with diarrhea Ongoing times 7-10 days with multiple episodes of diarrhea per day CT with large masslike area in small bowel mesentery and smaller mass in left psoas muscle suggestive of neoplastic process like lymphoma, as well with marked thickening of the rectum and ascending colon Pt with history of multiple myeloma x11 years, on Revlimid x2 years, though has not taking for the past 5 months due to travel Analgesics for pain management Oncology consult JHONNY Patient's creatinine 2.13 at time of presentation with repeat 1.89 after IVF Baseline unknown Patient received 2 L IVF in the ED Will place on maintenance fluids Follow BNP Hyperkalemia Initial potassium 5.1 with repeat 5.6 after IVF Likely in the setting of spironolactone with dehydration Hold spironolactone Hold on Lokelma due to diarrhea Follow potassium Hypotension Patient's BP as low as 96/47 Likely in the setting of dehydration due to GI losses and reduced p.o. intake while continuing to take spironolactone Patient received 2 L IVF in the ED Will place on maintenance fluids overnight Monitor BP No sepsis Macrocytic anemia H&H 8.9/26.2, baseline unknown Patient with history of multiple myeloma Stool positive for occult blood Follow H&H Lower leg edema Likely in the setting of possible lymphoma Will hold diuretics for now due to hyperkalemia Multiple myeloma Diagnosed 11 years ago Started on Revlimid x2 years, but not taking for the past 5 months due to travel CAD/Hx of TX Continue statin Hold Plavix Mood disorder Continue sertraline Full Code Attending:? DVT Prophylaxis: Lovenox Pt will require a hospitalization of at least two nights for treatment of?JHONNY and intractable abdominal pain and diarrhea in the setting of abdominal masses concerning for lymphoma. Patient will require administration of IV fluids, close monitoring of labs, and specialist consultation with Oncology. <Jessi Ramirez MD - Last Filed: 08/07/23 00:06> Quality Stroke Does the patient have a stroke diagnosis?: No <CHRISTIN Dobbins - Last Filed: 08/06/23 23:13> VTE Prior VTE?: No <CHRISTIN Dobbins - Last Filed: 08/06/23 23:13> VTE Risk Level:: Medical - moderate - high <CHRISTIN Dobbins - Last Filed: 08/06/23 23:13> VTE Device Contraindication: Treatment Not Indicated <CHRISTIN Dobbins - Last Filed: 08/06/23 23:13> VTE Drug Contraindication: N/A - Med Ordered <CHRISTIN Dobbins - Last Filed: 08/06/23 23:13>
[2023-08-06] MEDS: Heparin Sodium,Porcine 5,000 UNIT/ML VIAL 5000 UNIT SUBCUT (22:52)
[2023-08-06 23:11] VITALS: BP 140/97; PULSE 68; RESP 20; TEMP 36.7; O2SAT 99
[2023-08-06] MEDS: 0.9 % Sodium Chloride 1,000 ML 100 ML IVCONT (23:55)
[2023-08-07] MEDS: Loperamide HCl 2 MG CAPSULE 4 MG PO (00:51)
--- NOTE | 2023-08-07 00:54 | PC.NURSE ---
multiple episodes of diarrhea/incont of stool, commode at bedside. pt medicated per MD ERICK aware
--- NOTE | 2023-08-07 03:35 | PC.NURSE ---
med rec completed base on med list family provided from PCP
[2023-08-07 03:48] VITALS: BP 102/52; PULSE 77; RESP 14; TEMP 36.3; O2SAT 97
[2023-08-07 04:27] VITALS: BP 124/59; PULSE 75; RESP 18; TEMP 36.6; O2SAT 98
[2023-08-07 07:12] VITALS: BP 112/56; PULSE 76; RESP 17; TEMP 36.1; O2SAT 95
[2023-08-07 08:06] LABS: MANUAL DIFF FLAG NO
[2023-08-07 08:07] LABS: Basophils Percent Auto 0.2 % (0-2); Eosinophils Absolute Auto 0.2 X10*3/uL (0.0-0.4); Eosinophils Percent Auto 3.5 % (0-4); Hematocrit 23.1 % (42.0-52.0); Hemoglobin 7.9 g/dl (14.0-18.0); Imm Gran Abs Auto 0.02 X10*3/uL (0.00-0.03); Imm Gran Pct Auto 0.4 % (0.0-0.4); Lymphocytes Percent Auto 21.9 % (20-40); Mean Corpuscular HGB Conc 34.2 g/dl (31.0-36.0); Mean Corpuscular Hemoglobin 34.2 pg (27.0-33.0); Monocytes Absolute Auto 0.6 X10*3/uL (0.1-1.2); Monocytes Percent Auto 13.5 % (2-11); Neutrophils Absolute Auto 2.7 x10*3/uL (2.0-8.3); Neutrophils Percent Auto 60.5 % (45-73); Platelet Count 257 X10*3/uL (160-400); Red Blood Count 2.31 X10*6/uL (4.60-5.80); Red Cell Distribution Width 14.3 % (11.0-16.0); White Blood Count 4.5 X10*3/uL (4.8-10.8)
[2023-08-07] MEDS: Pravastatin Sodium 40 MG TABLET PO (08:09)
[2023-08-07] MEDS: Sertraline HCL 100 MG TABLET PO (08:09)
[2023-08-07] MEDS: Cholecalciferol (Vitamin D3) 25 MCG TABLET PO (08:09)
[2023-08-07] MEDS: 0.9 % Sodium Chloride 1,000 ML 100 ML IVCONT (08:15)
[2023-08-07 08:19] LABS: Anion Gap 17 (12-20); Blood Urea Nitrogen 30 mg/dL (9-16); Calcium 8.1 mg/dL (8.4-10.2); Carbon Dioxide 14 mmol/L (22-29); Chloride 110 mmol/L (96-108); Creatinine Clr Calc Pharmacy 30.1; Estimated Glomerular Filt Rate 35; Glucose Random 75 mg/dL (60-115); Sodium 136 mmol/L (135-145)
--- NOTE | 2023-08-07 11:33 | P.PNIM_ITS ---
Subjective Subjective Date of Service: 08/07/23 Interval History: here wth persistent diarrhea, and has JHONNY, metabolic acidosis and abdominal mass concerning for lymphoma Diarrhea persists Physical Exam 2 Vital Signs: Vital Signs: Last Vital Signs Temp 97 F 08/07/23 07:12 Pulse 76 08/07/23 07:12 Resp 17 08/07/23 07:12 BP 112/56 L 08/07/23 07:12 Pulse Ox 95 08/07/23 07:12 O2 Del Method Room Air 08/07/23 07:12 BMI result Body Mass Index 23.6 General: AO X 3, no acute distress Resp: CTA bilateral CVS: S1,S2,RRR GI: +BS, NT, no distention Skin: No rash Neuro: motor grossly intact Psych: appropriate affect Objective Data Active Medications Acetaminophen (Acetaminophen 325 Mg Tablet) 650 mg PO Q6H PRN PRN Reason: Pain, Mild (Pain Scale 1-3) Sodium Chloride (Ns) 1,000 mls @ 100 mls/hr IVCONT .Q10H [facility] Last Admin: 08/07/23 08:15 Dose: 100 mls/hr Documented By: CARMELLA Lidocaine (Lidocaine 5 % Ointment 35 Gm) 1 appl TOPICAL Q6H PRN; Protocol PRN Reason: Pain, Mild (Pain Scale 1-3) Melatonin (Melatonin 3 Mg Tablet) 6 mg PO BEDTIME PRN PRN Reason: Insomnia Ondansetron HCl (Ondansetron Hcl 4 Mg/2 Ml Vial) 4 mg IVPUSH Q8H PRN PRN Reason: Nausea and Vomiting Pravastatin Sodium (Pravastatin Sodium 40 Mg Tablet) 40 mg PO DAILY [facility] Last Admin: 08/07/23 08:09 Dose: 40 mg Documented By: CARMELLA Sertraline HCl (Sertraline Hcl 100 Mg Tablet) 100 mg PO DAILY [facility] Last Admin: 08/07/23 08:09 Dose: 100 mg Documented By: CARMELLA Sodium Chloride (0.9 % Sodium Chloride Flush 3 Ml Syringe) 3 ml IVFLUSH QSHIFT [facility] Last Admin: 08/07/23 08:09 Dose: Not Given Documented By: CARMELLA Non-Admin Reason: IV Running Vitamin D (Cholecalciferol (Vitamin D3) 25 Mcg Tablet) 25 mcg PO DAILY [facility] Last Admin: 08/07/23 08:09 Dose: 25 mcg Documented By: CARMELLA Labs 08/07/23 07:37 08/07/23 07:37 Labs: Laboratory Results - last 24 hr 08/06/23 08/06/23 08/06/23 15:07 15:23 16:50 MCV 99.6 H MCH 33.8 H MCHC 34.0 RDW 14.1 Plt Count 317 MPV 8.9 L Immature Gran % (Auto) 0.6 H Neut % (Auto) 74.0 H Lymph % (Auto) 14.[address] [place] % (Auto) 9.1 Eos % (Auto) 1.5 Baso % (Auto) 0.4 Lymph # (Auto) 1.[address] [place] # (Auto) 0.7 Eos # (Auto) 0.1 Baso # (Auto) 0.0 Abs Immat Gran (auto) 0.04 H Absolute Neuts (auto) 5.3 Absolute Nucleated RBC 0.000 Nucleated RBC % (auto) 0.0 Anion Gap 20 Estim Creat Clear Calc 26.3 Estimated GFR 30 Random Glucose 84 Calcium 9.3 Magnesium 1.9 Total Bilirubin 0.1 AST 23 ALT 19 Alkaline Phosphatase 43 Total Protein 7.1 Albumin 4.1 Lipase 13 Urine Color Yellow Urine Appearance Turbid Urine pH 5.5 Ur Specific [place] 1.020 Urine Protein 100 (2+) H Urine Glucose (UA) Negative Urine Ketones Trace Urine Blood Trace H Urine Nitrite Negative Ur Leukocyte Esterase Negative Urine RBC 0-2 Urine WBC 0-5 Ur Squamous Epith Cells 11-20 Other Crystals Present Urine Bacteria None Seen Hyaline Casts 0-2 Granular Casts Present Stool Occult Blood POSITIVE 08/06/23 08/07/23 20:18 07:37 MCV 100.0 H MCH 34.2 H MCHC 34.2 RDW 14.3 Plt Count 257 MPV 9.0 L Immature Gran % (Auto) 0.4 Neut % (Auto) 60.5 Lymph % (Auto) 21.9 [facility] % (Auto) 13.5 H Eos % (Auto) 3.5 Baso % (Auto) 0.2 Lymph # (Auto) 1.[address] [place] # (Auto) 0.6 Eos # (Auto) 0.2 Baso # (Auto) 0.0 Abs Immat Gran (auto) 0.02 Absolute Neuts (auto) 2.7 Absolute Nucleated RBC 0.000 Nucleated RBC % (auto) 0.0 Anion Gap 19 17 Estim Creat Clear Calc 29.6 30.1 Estimated GFR 34 35 Random Glucose 68 75 Calcium 8.4 D 8.1 L Magnesium Total Bilirubin AST ALT Alkaline Phosphatase Total Protein Albumin Lipase Urine Color Urine Appearance Urine pH Ur Specific [place] Urine Protein Urine Glucose (UA) Urine Ketones Urine Blood Urine Nitrite Ur Leukocyte Esterase Urine RBC Urine WBC Ur Squamous Epith Cells Other Crystals Urine Bacteria Hyaline Casts Granular Casts Stool Occult Blood Assessment and Plan (1) JHONNY (acute kidney injury): Status: Acute (2) Lymphoma: Status: Acute Plan Pt is an 83-year-old male with a PMH significant for?multiple myeloma on Revlimid, CAD, NM, and hypothyroidism who presents to the ED with?left lower quadrant abdominal pain and and rectal ?burning? with loose stools x7-10 days. Pt will be admitted to the hospital for treatment and further evaluation of JHONNY and intractable abdominal pain and diarrhea in the setting abdominal masses suspicious for lymphoma. Abdominal and rectal pain with diarrhea rule out cdif, gi panel pending large masslike area in small bowel mesentery and smaller mass in left psoas muscle suggestive of neoplastic process like lymphoma, as well with marked thickening of the rectum and ascending colon Pt with history of multiple myeloma x11 years, on Revlimid x2 years, though has not taking for the past 5 months due to travel Oncology consult JHONNY--likely pre renal d/t diarrhea, IVF and follow BMP Metabolic acidosis---likely mixed disorder from decrease renal excretion and hyperchloremic metabolic acidosis from Normal saline. stop normal saline, add LR, oral Bicab replacement and nephrology evaluation Hyperkalemia--likely hemolysis, repeat is normal. Initial Hypotension--not due to sepsis, BP now better with IVF Macrocytic anemia H&H 8.9/26.2, baseline unknown Patient with history of multiple myeloma Stool positive for occult blood Follow H&H, GI consult Lower leg edema Likely in the setting of possible lymphoma hold diuretics Multiple myeloma Diagnosed 11 years ago Started on Revlimid x2 years, but not taking for the past 5 months due to travel CAD/Hx of NM Continue statin Hold Plavix Mood disorder Continue sertraline Full Code Attending:? DVT Prophylaxis: mechanical device d/t anemia, gib Quality Stroke Does the patient have a stroke diagnosis?: No VTE Prior VTE?: No VTE Risk Level:: Medical - moderate - high VTE Device Contraindication: Treatment Not Indicated VTE Drug Contraindication: N/A - Med Ordered
[2023-08-07] MEDS: Lactated Ringers 1,000 ML 100 ML IVCONT ×2 (12:19→22:26)
[2023-08-07] MEDS: Sodium Bicarbonate 650 MG TABLET PO ×2 (12:21→20:23)
--- NOTE | 2023-08-07 13:05 | P.CONNP_ITS ---
History of Present Illness Reason for Consult Consult date: 08/08/23 Chief Complaint Chief complaint: Rectal Pain History of Present Illness Narrative: 83-year-old male with a PMH significant for?multiple myeloma on Revlimid, CAD, MS, and hypothyroidism who presents to the ED with?left lower quadrant abdominal pain and and rectal ?burning? with loose stools x7-10 days. Patient reports having to use the bathroom multiple times a day, sometimes as many as 3-4 times in a row where he will not make it back to his recliner before having to go back to the bathroom. Denies liquid diarrhea, but stool is loose. Denies melena or hematochezia, but has noticed bright red blood on toilet paper after wiping. Reports has recently had no appetite and not feeling like eating or drinking much. Also complains of recent acid reflux. Has noticed significant lower leg edema for the past 10-12 days. Denies shortness of breath, VALERIO, or orthopnea. Patient reports history of multiple myeloma for the past 11 years, though has been on Revlimid for only the past 2 years or so. However, patient has not been on Revlimid for the past 5 months after going to [place] to visit his who has advanced Alzheimer's and staying there for much longer than anticipated. Denies nausea, vomiting. No chest pain/pressure, palpitations. No fever, chills. Consult has been requested for management of renal failure. CT scan was reviewed he is bilateral mild hydronephrosis with abdominal mass. He is difficulty urination. Review of Systems Constitutional: Denies fever(s) and Denies weight loss Cardiovascular: Denies chest pain Respiratory: Denies cough and Denies hemoptysis Gastrointestinal: Denies abdominal pain, Denies diarrhea and Denies nausea Musculoskeletal: Denies back pain Denies focal weakness PMFSH Past Medical History Medical History (Updated 08/06/23 @ 22:52 by CHRISTIN Dobbins) Myocardial infarction CAD (coronary artery disease) Hypertension Hypothyroidism Multiple myeloma Social History Social History Household Members: Spouse Housing: House Do you presently have visiting nurse or other home services: No Alcohol intake: former Patient Tobacco Use Status: Current everyday Tobacco user Cigarettes Per Day: 4 Second Hand Smoke Exposure: No service: No Meds Allergies Allergy/AdvReac Type Severity Reaction Status Date / Time No Known Allergies Allergy Verified 08/06/23 14:32 Active Medications: Current Medications Acetaminophen (Acetaminophen 325 Mg Tablet) 650 mg PO Q6H PRN PRN Reason: Pain, Mild (Pain Scale 1-3) Lactated Ringer's (Lr) 1,000 mls @ 100 mls/hr IVCONT .Q10H [facility] Last Admin: 08/07/23 12:19 Dose: 100 mls/hr Lidocaine (Lidocaine 5 % Ointment 35 Gm) 1 appl TOPICAL Q6H PRN; Protocol PRN Reason: Pain, Mild (Pain Scale 1-3) Melatonin (Melatonin 3 Mg Tablet) 6 mg PO BEDTIME PRN PRN Reason: Insomnia Ondansetron HCl (Ondansetron Hcl 4 Mg/2 Ml Vial) 4 mg IVPUSH Q8H PRN PRN Reason: Nausea and Vomiting Pravastatin Sodium (Pravastatin Sodium 40 Mg Tablet) 40 mg PO DAILY [facility] Last Admin: 08/07/23 08:09 Dose: 40 mg Sertraline HCl (Sertraline Hcl 100 Mg Tablet) 100 mg PO DAILY [facility] Last Admin: 08/07/23 08:09 Dose: 100 mg Sodium Bicarbonate (Sodium Bicarbonate 650 Mg Tablet) 650 mg PO BID [facility] Last Admin: 08/07/23 12:21 Dose: 650 mg Sodium Chloride (0.9 % Sodium Chloride Flush 3 Ml Syringe) [facility] Admin: 08/07/23 08:09 Dose: Not Given Vitamin D (Cholecalciferol (Vitamin D3) 25 Mcg Tablet) 25 mcg PO DAILY [facility] Last Admin: 08/07/23 08:09 Dose: 25 mcg Home Medications ?Medication ?Instructions ?Recorded ?Confirmed ?Last Taken ?Type calcium carbonate 600 mg PO BID 08/06/23 08/07/23 Unknown History clopidogrel 75 mg tablet 75 mg PO DAILY 08/06/23 08/07/23 Unknown History pravastatin 40 mg tablet 40 mg PO DAILY 08/06/23 08/07/23 Unknown History sertraline 100 mg tablet 100 mg PO DAILY 08/06/23 08/07/23 Unknown History spironolactone 25 mg tablet 25 mg PO DAILY 08/06/23 08/07/23 Unknown History acyclovir 200 mg capsule 200 mg PO BID 08/07/23 08/07/23 Unknown History aspirin 81 mg tablet,delayed 81 mg PO DAILY 08/07/23 08/07/23 Unknown History release cholecalciferol (vitamin D3) 25 25 mcg PO DAILY 08/07/23 08/07/23 Unknown History mcg (1,000 unit) tablet levothyroxine 175 mcg tablet 87.5 mcg PO MATTHEW 08/07/23 08/07/23 Unknown History levothyroxine 175 mcg tablet 175 mcg PO MOTUWETHFRSA 08/07/23 08/07/23 Unknown History lisinopril 5 mg tablet 2.5 mg PO DAILY 08/07/23 08/07/23 Unknown History loperamide 2 mg capsule 2 - 4 mg PO Q4H PRN diarrhea 08/07/23 08/07/23 Unknown History metoprolol succinate 25 mg 12.5 mg PO DAILY 08/07/23 08/07/23 Unknown History tablet,extended release 24 hr (Toprol XL) Physical Exam Vital Signs: Last Vital Signs Temp 97 F 08/07/23 07:12 Pulse 76 08/07/23 07:12 Resp 17 08/07/23 07:12 BP 112/56 L 08/07/23 07:12 Pulse Ox 95 08/07/23 07:12 O2 Del Method Room Air 08/07/23 07:12 BMI result Body Mass Index 23.6 Awake. Comfortable. Neck is supple. Mucosa moist. Lungs bilateral scattered rhonchi. Heart S1-S2 heard no gallop. Abdomen distended nontender Suprapubic dullness present Extremities no edema. No involuntary movements. No myoclonus. Results Lab Results 08/07/23 07:37 08/07/23 07:37 Lab results: Chemistry 08/06/23 08/06/23 08/07/23 15:23 20:18 07:37 Sodium 135 137 136 Potassium 5.1 5.6 H 5.0 Carbon Dioxide 16 L 15 L 14 L BUN 35 H 33 H 30 H Creatinine 2.13 H 1.89 H 1.86 H Calcium 9.3 8.4 D 8.1 L Hematology 08/06/23 08/07/23 15:23 07:37 WBC 7.1 4.5 L Hgb 8.9 L 7.9 L Plt Count 317 257 Urinalysis 08/06/23 15:07 Urine Color Yellow Urine Appearance Turbid Urine pH 5.5 Ur Specific [place] 1.020 Urine Protein 100 (2+) H Urine Glucose (UA) Negative Urine Ketones Trace Urine Blood Trace H Urine Nitrite Negative Ur Leukocyte Esterase Negative Urine RBC 0-2 Urine WBC 0-5 Ur Squamous Epith Cells 11-20 Hyaline Casts 0-2 Assessment and Plan (1) JHONNY (acute kidney injury): Status: Acute Plan 83-year-old man with multiple myeloma S renal failure. He probably has a component of acute kidney injury superimposed on chronic kidney disease. Based on the imaging studies and clinical picture is suspect he has obstructive uropathy. Other possibilities including hypoperfusion from hypovolemia. Chronic kidney disease may be due to underlying multiple myeloma but this needs to be ruled out. Recommendations Guerra catheter. Watch urine output. Keep intake more than output. Check urine sodium, protein, creatinine. Urine electrophoresis Follow renal function over the next 24-48 hours. If there is no improvement in renal function obtain follow-up renal ultrasonogram and he may require Urology intervention if he has ongoing obstruction. Agree with p.o. bicarbonate for correcting acidosis No indication for dialysis. Procedures Date of Service Date of Service: 08/08/23
--- NOTE | 2023-08-07 13:37 | PC.NURSE ---
Dgt called, updated per most recent MD note.
[2023-08-07 14:42] LABS: CDiff Gene PCR NEGATIVE (Negative)
[2023-08-07 15:03] LABS: Adenovirus F 40/41 Not Detected (Not Detect.); Astrovirus Not Detected (Not Detect.); Campylobacter Not Detected (Not Detect.); Cryptosporidium Not Detected (Not Detect.); Cyclospora cayetanensis Not Detected (Not Detect.); E. coli EAEC Not Detected (Not Detect.); E. coli EPEC Detected (Not Detect.); E. coli ETEC Not Detected (Not Detect.); E. coli STEC Not Detected (Not Detect.); Entamoeba histolytica Not Detected (Not Detect.); Giardia lamblia Not Detected (Not Detect.); Plesiomonas shigelloides Not Detected (Not Detect.); Rotavirus A Not Detected (Not Detect.); Salmonella Not Detected (Not Detect.); Sapovirus Not Detected (Not Detect.); Shigella sp./EIEC Not Detected (Not Detect.); Vibrio Not Detected (Not Detect.); Vibrio Cholerae Not Detected (Not Detect.); Yersinia enterocolitica Not Detected (Not Detect.)
--- NOTE | 2023-08-07 15:30 | MHC.IC ---
Pt has a preliminary positive NOROVIRUS result. Maintain STRICT contact precautions and handwashing with soap and water while awaiting final results.
--- NOTE | 2023-08-07 15:44 | PHA.MEDREC ---
Pharmacy Consult ? Medication Reconciliation Pharmacy has completed the medication reconciliation. med rec done by fatimah. Used claim history, patient med list, and called patients pharmacy to confirm medications.
[2023-08-07 16:00] VITALS: BP 112/53; PULSE 50; RESP 12; TEMP 36.3; O2SAT 95
--- NOTE | 2023-08-07 16:29 | MHC.CM.PN ---
CM SPOKE TO PTS DAUGHTER, ALYSIA, AT THE NUMBER ON FILE SHE REPORTS THE PT LIVES WITH HIS UPSTAIRS FROM HER AND SHE ASSISTS PRN PT DOES NOT USE ANY DME COPY OF HCP REQUESTED PCP: DR HANSEN IMM DELIVERED DCP: [facility]
[2023-08-07 16:30] VITALS: PULSE 72
[2023-08-07] MEDS: Acetaminophen 325 MG TABLET 650 MG PO (17:44)
[2023-08-07 18:00] LABS: Total Protein Urine Random 119 mg/dL (<12)
--- NOTE | 2023-08-07 19:36 | PM.EVENT ---
Event Note Date of Service: 08/07/23 Event Note: Patient complaining of dysphagia and sensation of choking with p.o. intake. States that has been ongoing for a while . Patient states when he has burping, food or tablets which are stuck in his throat often come up. Will keep patient NPO and consult speech. Gastroenterology has been consulted. Time Spent With Patient Time: Total time managing care of this patient today ____ minutes.
[2023-08-07] MEDS: Acyclovir 200 MG CAPSULE PO (20:23)
[2023-08-07] MEDS: HYDROmorphone HCl 0.5 MG/0.5 ML SYRINGE IVPUSH (20:23)
[2023-08-07] MEDS: 0.9 % Sodium Chloride Flush 3 ML SYRINGE IVFLUSH (20:30)
[2023-08-08] VITALS: BP 117/57; PULSE 51; RESP 16; TEMP 36.3; O2SAT 96
[2023-08-08] MEDS: HYDROmorphone HCl 0.5 MG/0.5 ML SYRINGE IVPUSH ×3 (03:18→16:27)
[2023-08-08] MEDS: Levothyroxine Sodium 175 MCG TABLET PO (05:45)
[2023-08-08 06:54] VITALS: BP 119/66; PULSE 52; RESP 16; TEMP 36.6; O2SAT 96
--- NOTE | 2023-08-08 08:53 | P.PNNP_ITS ---
Subjective Subjective Date of Service: 08/10/23 Interval history: Events noted Guerra in place Non oliguric Physical Exam 2 Vital Signs: Vital Signs: Last Vital Signs Temp 97.9 F 08/08/23 06:54 Pulse 52 08/08/23 06:54 Resp 16 08/08/23 06:54 BP 119/66 08/08/23 06:54 Pulse Ox 96 08/08/23 06:54 O2 Del Method Room Air 08/08/23 06:54 BMI result Body Mass Index 23.6 Awake. Comfortable. Neck is supple. Mucosa moist. Lungs bilateral scattered rhonchi. Heart S1-S2 heard no gallop. Abdomen soft. Extremities no edema. No involuntary movements. No myoclonus. Objective Data Labs 08/09/23 08:29 08/10/23 05:31 Labs: Laboratory Results - last 24 hr 08/07/23 08/07/23 13:18 16:15 U Random Total Protein 119 H Ur Random Sodium 62.0 Urine Creatinine 109.50 Stl C. cayetanensis PCR Not Detected Stool Rotavirus A PCR Not Detected Stl Adenov F 40/41 PCR Not Detected Stool Astrovirus (PCR) Not Detected Stool Campylobacter PCR Not Detected Stool Cryptosporidium PCR Not Detected Stl Sh Tox Pr E STEC PCR Not Detected Stool E coli O157 PCR Not applicable Stl Enterotoxigenic E PCR Not Detected Stool EPEC (PCR) Detected A Stool EAEC (PCR) Not Detected Stl E. histolytica PCR Not Detected Stool Giardia Lamblia PCR Not Detected Stl P. shigelloides PCR Not Detected Stool Salmonella PCR Not Detected Stool Sapovirus (PCR) Not Detected Stl Shigella/EIEC PCR Not Detected St Y.enterocolitica PCR Not Detected Stool Vibrio (PCR) Not Detected Stl Vibrio cholerae PCR Not Detected Stl Norovirus GI/GII PCR See Comment C. difficile Tox B Gene NEGATIVE Procedures Date of Service Date of Service: 08/10/23 Assessment & Plan Assessment and plan (1) JHONNY (acute kidney injury): Status: Acute Plan 83-year-old man with multiple myeloma S renal failure. He probably has a component of acute kidney injury superimposed on chronic kidney disease. Based on the imaging studies and clinical picture is suspect he has obstructive uropathy. Other possibilities including hypoperfusion from hypovolemia. Chronic kidney disease may be due to underlying multiple myeloma but this needs to be ruled out. Urine Pro: Cr 1.1 Recommendations Keep Guerra catheter. Watch urine output. Keep intake more than output. Await labs Follow renal function over the next 24-48 hours. If there is no improvement in renal function obtain follow-up renal ultrasonogram and he may require Urology intervention if he has ongoing obstruction. Agree with p.o. bicarbonate for correcting acidosis No indication for dialysis. Time Spent With Patient Time: Total time managing care of this patient today ____ minutes. Progress Note: Quality Stroke Does the patient have a stroke diagnosis?: No
[2023-08-08 08:59] LABS: Anion Gap 15 (12-20); Blood Urea Nitrogen 30 mg/dL (9-16); Calcium 8.4 mg/dL (8.4-10.2); Carbon Dioxide 16 mmol/L (22-29); Chloride 110 mmol/L (96-108); Creatinine Clr Calc Pharmacy 36.6; Estimated Glomerular Filt Rate 44; Glucose Random 85 mg/dL (60-115); Potassium 5.1 mmol/L (3.3-5.1); Sodium 136 mmol/L (135-145)
[2023-08-08] MEDS: Pravastatin Sodium 40 MG TABLET PO (08:59)
[2023-08-08] MEDS: Sertraline HCL 100 MG TABLET PO (08:59)
[2023-08-08] MEDS: Acyclovir 200 MG CAPSULE PO ×2 (08:59→22:09)
[2023-08-08] MEDS: Metoprolol Succinate ER 12.5 MG HALFTAB.ER.24H PO (08:59)
[2023-08-08] MEDS: Cholecalciferol (Vitamin D3) 25 MCG TABLET PO ×2 (09:00→09:08)
[2023-08-08] MEDS: Sodium Bicarbonate 650 MG TABLET PO ×2 (09:00→22:09)
[2023-08-08] MEDS: 0.9 % Sodium Chloride Flush 3 ML SYRINGE IVFLUSH (09:04)
[2023-08-08] MEDS: Lactated Ringers 1,000 ML 100 ML IVCONT ×2 (09:05→19:30)
--- NOTE | 2023-08-08 10:35 | P.PNIM_ITS ---
Subjective Subjective Date of Service: 08/08/23 Interval History: Diarrhea is bettter, renal function is better, had a bloody diarrhea this morning, Physical Exam 2 Vital Signs: Vital Signs: Last Vital Signs Temp 97.9 F 08/08/23 06:54 Pulse 52 08/08/23 06:54 Resp 16 08/08/23 06:54 BP 119/66 08/08/23 06:54 Pulse Ox 96 08/08/23 06:54 O2 Del Method Room Air 08/08/23 06:54 BMI result Body Mass Index 23.6 General: AO X 3, no acute distress Resp: CTA bilateral CVS: S1,S2,RRR GI: +BS, NT, no distention Skin: No rash Neuro: motor grossly intact Psych: appropriate affect Objective Data Active Medications Acetaminophen (Acetaminophen 325 Mg Tablet) 650 mg PO Q6H PRN PRN Reason: Pain, Mild (Pain Scale 1-3) Last Admin: 08/07/23 17:44 Dose: 650 mg Documented By: CARMELLA Acyclovir (Acyclovir 200 Mg Capsule) 200 mg PO BID [facility] Last Admin: 08/08/23 08:59 Dose: 200 mg Documented By: PRASANNA Hydromorphone HCl (Hydromorphone Hcl 0.5 Mg/0.5 Ml Syringe) 0.5 mg IVPUSH Q4H PRN; Protocol PRN Reason: Pain, Severe (Pain Scale 7-10) Last Admin: 08/08/23 03:18 Dose: 0.5 mg Documented By: RUPESH Lactated Ringer's (Lr) 1,000 mls @ 100 mls/hr IVCONT .Q10H [facility] Last Admin: 08/08/23 09:05 Dose: 100 mls/hr Documented By: PRASANNA Levothyroxine Sodium (Levothyroxine Sodium 175 Mcg Tablet) 175 mcg PO [id number]@0600 [facility] Last Admin: 08/08/23 05:45 Dose: 175 mcg Documented By: RUPESH Levothyroxine Sodium (Levothyroxine Sodium 175 Mcg Tablet) 87.5 mcg PO Morgan@0600 [facility] Lidocaine (Lidocaine 5 % Ointment 35 Gm) 1 appl TOPICAL Q6H PRN; Protocol PRN Reason: Pain, Mild (Pain Scale 1-3) Melatonin (Melatonin 3 Mg Tablet) 6 mg PO BEDTIME PRN PRN Reason: Insomnia Metoprolol Succinate (Metoprolol Succinate Er 12.5 Mg Halftab.Er.24h) 12.5 mg PO DAILY [facility]; Protocol Last Admin: 08/08/23 08:59 Dose: 12.5 mg Documented By: PRASANNA Ondansetron HCl (Ondansetron Hcl 4 Mg/2 Ml Vial) 4 mg IVPUSH Q8H PRN PRN Reason: Nausea and Vomiting Pravastatin Sodium (Pravastatin Sodium 40 Mg Tablet) 40 mg PO DAILY [facility] Last Admin: 08/08/23 08:59 Dose: 40 mg Documented By: PRASANNA Sertraline HCl (Sertraline Hcl 100 Mg Tablet) 100 mg PO DAILY [facility] Last Admin: 08/08/23 08:59 Dose: 100 mg Documented By: PRASANNA Sodium Bicarbonate (Sodium Bicarbonate 650 Mg Tablet) 650 mg PO BID [facility] Last Admin: 08/08/23 09:00 Dose: 650 mg Documented By: PRASANNA Sodium Chloride (0.9 % Sodium Chloride Flush 3 Ml Syringe) 3 ml IVFLUSH QSHIFT [facility] Last Admin: 08/08/23 09:04 Dose: 3 ml Documented By: PRASANNA Vitamin D (Cholecalciferol (Vitamin D3) 25 Mcg Tablet) 25 mcg PO DAILY [facility] Last Admin: 08/08/23 09:08 Dose: 25 mcg Documented By: PRASANNA Vitamin D (Cholecalciferol (Vitamin D3) 25 Mcg Tablet) 25 mcg PO DAILY [facility] Last Admin: 08/08/23 09:00 Dose: 25 mcg Documented By: PRASANNA Labs 08/07/23 07:37 08/08/23 07:00 Labs: Laboratory Results - last 24 hr 08/07/23 08/07/23 08/08/23 13:18 16:15 07:00 Anion Gap 15 Estim Creat Clear Calc 36.6 Estimated GFR 44 Random Glucose 85 Calcium 8.4 U Random Total Protein 119 H Ur Random Sodium 62.0 Urine Creatinine 109.50 Stl C. cayetanensis PCR Not Detected Stool Rotavirus A PCR Not Detected Stl Adenov F 40/41 PCR Not Detected Stool Astrovirus (PCR) Not Detected Stool Campylobacter PCR Not Detected Stool Cryptosporidium PCR Not Detected Stl Sh Tox Pr E STEC PCR Not Detected Stool E coli O157 PCR Not applicable Stl Enterotoxigenic E PCR Not Detected Stool EPEC (PCR) Detected A Stool EAEC (PCR) Not Detected Stl E. histolytica PCR Not Detected Stool Giardia Lamblia PCR Not Detected Stl P. shigelloides PCR Not Detected Stool Salmonella PCR Not Detected Stool Sapovirus (PCR) Not Detected Stl Shigella/EIEC PCR Not Detected St Y.enterocolitica PCR Not Detected Stool Vibrio (PCR) Not Detected Stl Vibrio cholerae PCR Not Detected Stl Norovirus GI/GII PCR See Comment C. difficile Tox B Gene NEGATIVE Assessment and Plan (1) JHONNY (acute kidney injury): Status: Acute (2) Lymphoma: Status: Acute Plan Pt is an 83-year-old male with a PMH significant for?multiple myeloma on Revlimid, CAD, [place], and hypothyroidism who presents to the ED with?left lower quadrant abdominal pain and and rectal ?burning? with loose stools x7-10 days. Pt will be admitted to the hospital for treatment and further evaluation of JHONNY and intractable abdominal pain and diarrhea in the setting abdominal masses suspicious for lymphoma. Abdominal and rectal pain with diarrhea rule out cdif, gi panel pending large masslike area in small bowel mesentery and smaller mass in left psoas muscle suggestive of neoplastic process like lymphoma, as well with marked thickening of the rectum and ascending colon Pt with history of multiple myeloma x11 years, on Revlimid x2 years, though has not taking for the past 5 months due to travel, He is seen at the [facility] and has missed appointments Oncology consult, check [facility] record JHONNY--likely pre renal d/t diarrhea, and possible obstructive uropathy, renal function is improvement, continue, IVF and follow BMP Metabolic acidosis---likely mixed disorder from decrease renal excretion and hyperchloremic metabolic acidosis from Normal saline. stop normal saline, add LR, oral Bicab replacement and nephrology evaluation Hyperkalemia--likely hemolysis, repeat is normal. Initial Hypotension--not due to sepsis, BP now better with IVF Macrocytic anemia H&H 8.9/26.2, baseline unknown Patient with history of multiple myeloma Stool positive for occult blood Follow H&H, GI consult Lower leg edema Likely in the setting of possible lymphoma hold diuretics Multiple myeloma Diagnosed 11 years ago Started on Revlimid x2 years, but not taking for the past 5 months due to travel CAD/Hx of MT Continue statin Hold Plavix Mood disorder Continue sertraline Full Code Attending:? DVT Prophylaxis: mechanical device d/t anemia, gib Quality Stroke Does the patient have a stroke diagnosis?: No VTE Prior VTE?: No VTE Risk Level:: Medical - moderate - high VTE Device Contraindication: Treatment Not Indicated VTE Drug Contraindication: N/A - Med Ordered
[2023-08-08 11:25] LABS: Hematocrit 26.5 % (42.0-52.0); Mean Corpuscular Hemoglobin 33.7 pg (27.0-33.0); Mean Corpuscular Volume 99.3 fL (80.0-98.0); Mean Platelet Volume 9.1 fL (9.4-12.4); Platelet Count 294 X10*3/uL (160-400); Red Blood Count 2.67 X10*6/uL (4.60-5.80); Red Cell Distribution Width 14.2 % (11.0-16.0); White Blood Count 7.5 X10*3/uL (4.8-10.8)
[2023-08-08] MEDS: Acetaminophen 325 MG TABLET 650 MG PO (13:14)
--- NOTE | 2023-08-08 14:33 | PM.EVENT ---
Event Note Date of Service: 08/08/23 Event Note: GI consult dictated EGD/colonoscopy planned for 08/08 for further evaluation of symptoms and radiology abnormalities. Mr Espinoza is aware of risks and benefits and agrees to proceed. Bowel prep ordered. Time Spent With Patient Time: Total time managing care of this patient today ____ minutes.
--- NOTE | 2023-08-08 14:41 | MHC.SL.SWA ---
Speech Pathologist Impression: Risk of Aspiration Due to: Lethargy Medically Fragile Dysphasia Diet Status: Liquid Consistency and Strategies for Safe Swallow: Liquid Intake Recommendation: Thin Liquid Intake Strategies: Small Sips Solid Food Consistency: Dietary Recommendations: Chopped/Advanced (NDD3) Additional Modifications to Solid Foods: Once cleared by his medical team. Recommend START CHOPPED/ADVANCED SOLIDS (NDD3) and THIN LIQUIDS. MEDS WHOLE with PUREE. CLOSE SUPERVISION at first to monitor tolerance. HEALTH CARE SOCIAL WORKER will continue to follow. Oral Medication Intake: Whole with Puree Please contact the pharmacy regarding appropriate crushable or liquid drug formulations that are available whenever modified delivery is recommended. Compensatory Strategies and Precautions to be Taken for Safe Swallow: Sitting Upright (90 deg) Small Bites and Sips Alternate Liquids/Solids Rate of Ingestion Change Supervision While Eating and Drinking for Safe Swallow: Total Supervision (1:1) Foods to Avoid: Swallowing Recommended Treatments: Compens. Strategy Educat. Recommendation for Speech: Further Testing Needed Inpatient Speech Therapy Comment: Once cleared by his medical team. Recommend START CHOPPED/ADVANCED SOLIDS (NDD3) and THIN LIQUIDS. MEDS WHOLE with PUREE. CLOSE SUPERVISION at first to monitor tolerance. HEALTH CARE SOCIAL WORKER will continue to follow. Timeline to reassess: PRN Indian Nanny Clinican/Clinical Fellow: No Supervisory Statement: I have reviewed and agree with the student/clinical fellow's documentation: N/A Speech Language Pathologist: Dustin Purvis M.A., [facility]-HEALTH CARE SOCIAL WORKER
[2023-08-08 15:17] VITALS: BP 129/59; PULSE 60; RESP 18; TEMP 36.1; O2SAT 95
[2023-08-08] MEDS: PEG 3350/Na Sulf,Bicarb,Cl/KCL 4,000 ML SOLN.RECON 4000 ML PO (17:27)
[2023-08-08 20:02] VITALS: BP 138/59; PULSE 65; RESP 20; TEMP 36.1; O2SAT 95
[2023-08-08 23:18] VITALS: BP 135/67; PULSE 57; RESP 16; TEMP 36.2; O2SAT 95
--- NOTE | 2023-08-09 | ECG_ITS ---
Test Reason : Severe anemia, hx CAD Blood Pressure : / mmHG Vent. Rate : 073 BPM Atrial Rate : 073 BPM P-R Int : 146 ms QRS Dur : 118 ms QT Int : 452 ms P-R-T Axes : 039 -53 057 degrees QTc Int : 497 ms Sinus rhythm with blocked PACs Left axis deviation Incomplete right bundle branch block Prolonged QT Abnormal ECG No previous ECGs available Referred By: Amber Gomes Electronically Signed By:Behzad Pretty
--- NOTE | 2023-08-09 01:50 | CONS_ITS ---
DATE OF SERVICE: 08/08/2023 REFERRING PHYSICIAN: Eliu Montoya MD REASON FOR CONSULT: Diarrhea, rectal thickening as well as dysphagia. HISTORY OF PRESENT ILLNESS: Mr. Espinoza is a pleasant 83-year-old man, who was admitted to the hospital on August 05, after presenting to the emergency room with complaints of diarrhea and hematochezia. He reports abdominal pain which was localized to the left lower quadrant with associated rectal burning symptoms and loose stools with some rectal bleeding from wiping over a period of week prior to admission. He has also had fecal incontinence. Stools are loose and sometimes he sees bright red blood, which he attributes to wiping after bowel movements. He does recall undergoing colonoscopies in the past, but believes his last one was many years ago. He also complains about 6 months of intermittent dysphagia where he sometimes has to regurgitate food because he feels like it is stuck in his esophagus. He was evaluated in the emergency department with laboratory studies including stool testing which was negative for C diff. Stool occult blood was positive and a GI panel tested positive for E coli, EPEC. He denies any recent travel, unusual food ingestions, ill contacts, or other reasons why he might have infectious colitis. As part of his evaluation, CT scanning was obtained which was reviewed this is interpreted as showing a large masslike area in the small bowel mesentery with a small mass in the left psoas muscle suggestive of neoplastic process such as lymphoma, rectal thickening and ascending colon thickening was also noted with inflammatory changes in the right retroperitoneum. He has a history of multiple myeloma, previously treated with Revlimid, but has reportedly been off this medication since he was in [place] earlier in the year. PAST MEDICAL HISTORY: 1. Multiple myeloma as above. 2. Coronary artery disease with history of GA. 3. Hypothyroidism. 4. Hypertension. CURRENT MEDICATIONS: His current medication list is reviewed in the chart. ALLERGIES: THERE ARE NONE REPORTED. FAMILY HISTORY: He denies a family history of GI malignancy in any primary relative. SOCIAL HISTORY: There is no current tobacco, alcohol, or substance abuse review. REVIEW OF SYSTEMS: SKIN: No pruritus. HEENT: Negative. CARDIOPULMONARY: He currently denies shortness of breath or chest pain. GASTROINTESTINAL: As above. GENITOURINARY: Negative. NEUROPSYCHIATRIC: Negative. PHYSICAL EXAMINATION: GENERAL: Shows a pleasant male, lying comfortably in bed. VITAL SIGNS: Reviewed in the electronic medical record and are stable. SKIN: Anicteric. HEENT: Shows no scleral icterus. NECK: Without lymphadenopathy or thyromegaly. LUNGS: Clear. HEART: Shows a regular rate and rhythm. S1, S2. No murmur. ABDOMEN: Soft without focal masses or tenderness. Bowel sounds are present. No organomegaly is noted. EXTREMITIES: Without edema. LABORATORY DATA: Reviewed including his blood test and radiology studies. IMPRESSION: 1. Diarrhea with abnormal CT scan as above. 2. Dysphagia. His stool tests did show a positive results for enteropathogenic E coli, but it is unclear if this is an acute infection. CAT scan findings could be consistent with this based on the pericolonic inflammatory change in rectal wall thickening. However, the other finding of a mass in the mesentery is concerning in light of his upper GI and lower GI symptoms. I have recommended upper endoscopy and colonoscopy for further evaluation. Biopsies can be obtained at that time depending on the findings and if he has no underlying detectable GI malignancy or lymphoma, then I would consider recommending biopsy of the abnormal areas on the CAT scan as outlined in the radiology report. I discussed this with the patient. Thanks for asking me to see him. I will follow him in the hospital with you. MD ROSA Ruvalcaba/RAVI / [phone]
[2023-08-09] MEDS: Lactated Ringers 1,000 ML 100 ML IVCONT ×3 (05:20→17:06)
[2023-08-09] MEDS: Levothyroxine Sodium 175 MCG TABLET PO (05:22)
[2023-08-09 07:07] VITALS: BP 130/58; PULSE 87; RESP 19; TEMP 36.8; O2SAT 95
[2023-08-09] MEDS: Metoprolol Succinate ER 12.5 MG HALFTAB.ER.24H PO (08:17)
[2023-08-09] MEDS: Pravastatin Sodium 40 MG TABLET PO (08:17)
[2023-08-09] MEDS: Sertraline HCL 100 MG TABLET PO (08:17)
[2023-08-09] MEDS: Acyclovir 200 MG CAPSULE PO ×2 (08:17→20:28)
[2023-08-09] MEDS: Sodium Bicarbonate 650 MG TABLET PO ×2 (08:18→20:28)
[2023-08-09] MEDS: Cholecalciferol (Vitamin D3) 25 MCG TABLET PO (08:18)
[2023-08-09 08:55] LABS: Hematocrit 24.9 % (42.0-52.0); Hemoglobin 8.5 g/dl (14.0-18.0); Mean Corpuscular HGB Conc 34.1 g/dl (31.0-36.0); Mean Corpuscular Volume 99.6 fL (80.0-98.0); Mean Platelet Volume 9.3 fL (9.4-12.4); Platelet Count 280 X10*3/uL (160-400); Red Cell Distribution Width 14.1 % (11.0-16.0); White Blood Count 6.9 X10*3/uL (4.8-10.8)
[2023-08-09 09:17] LABS: Glucose, Whole Blood 81 mg/dL (60-115)
--- NOTE | 2023-08-09 09:26 | HO.PM.IMPN ---
Subjective Subjective Date of Service: 08/09/23 Interval History: He continues to have loose stool and in general doesn't feel good EGD/Colonoscopy is planned today Physical Exam Vital Signs: Vital Signs: Last Vital Signs Temp 98.2 F 08/09/23 07:07 Pulse 87 08/09/23 07:07 Resp 19 08/09/23 07:07 BP 130/58 L 08/09/23 07:07 Pulse Ox 95 08/09/23 07:07 O2 Del Method Room Air 08/09/23 07:07 BMI result Body Mass Index 23.6 General: AO X 3, no acute distress Resp: CTA bilateral CVS: S1,S2,RRR GI: +BS, NT, no distention Skin: No rash Neuro: motor grossly intact Psych: appropriate affect Objective Data Active Medications Acetaminophen (Acetaminophen 325 Mg Tablet) 650 mg PO Q6H PRN PRN Reason: Pain, Mild (Pain Scale 1-3) Last Admin: 08/08/23 13:14 Dose: 650 mg Documented By: PRASANNA Acyclovir (Acyclovir 200 Mg Capsule) 200 mg PO BID [facility] Last Admin: 08/09/23 08:17 Dose: 200 mg Documented By: CUBA Hydromorphone HCl (Hydromorphone Hcl 0.5 Mg/0.5 Ml Syringe) 0.5 mg IVPUSH Q4H PRN; Protocol PRN Reason: Pain, Severe (Pain Scale 7-10) Last Admin: 08/08/23 16:27 Dose: 0.5 mg Documented By: PRASANNA Lactated Ringer's (Lr) 1,000 mls @ 100 mls/hr IVCONT .Q10H [facility] Last Admin: 08/09/23 05:20 Dose: 100 mls/hr Documented By: MARIAH Levothyroxine Sodium (Levothyroxine Sodium 175 Mcg Tablet) 175 mcg PO MoTuWeThFrSa@0600 [facility] Last Admin: 08/09/23 05:22 Dose: 175 mcg Documented By: NIKOS-RIVLA Levothyroxine Sodium (Levothyroxine Sodium 175 Mcg Tablet) 87.5 mcg PO Morgan@0600 [facility] Lidocaine (Lidocaine 5 % Ointment 35 Gm) 1 appl TOPICAL Q6H PRN; Protocol PRN Reason: Pain, Mild (Pain Scale 1-3) Melatonin (Melatonin 3 Mg Tablet) 6 mg PO BEDTIME PRN PRN Reason: Insomnia Metoprolol Succinate (Metoprolol Succinate Er 12.5 Mg Halftab.Er.24h) 12.5 mg PO DAILY [facility]; Protocol Last Admin: 08/09/23 08:17 Dose: 12.5 mg Documented By: CUBA Ondansetron HCl (Ondansetron Hcl 4 Mg/2 Ml Vial) 4 mg IVPUSH Q8H PRN PRN Reason: Nausea and Vomiting Pravastatin Sodium (Pravastatin Sodium 40 Mg Tablet) 40 mg PO DAILY [facility] Last Admin: 08/09/23 08:17 Dose: 40 mg Documented By: CUBA Sertraline HCl (Sertraline Hcl 100 Mg Tablet) 100 mg PO DAILY [facility] Last Admin: 08/09/23 08:17 Dose: 100 mg Documented By: CUBA Sodium Bicarbonate (Sodium Bicarbonate 650 Mg Tablet) 650 mg PO BID [facility] Last Admin: 08/09/23 08:18 Dose: 650 mg Documented By: CUBA Sodium Chloride (0.9 % Sodium Chloride Flush 3 Ml Syringe) 3 ml IVFLUSH QSHIFT [facility] Last Admin: 08/09/23 08:18 Dose: Not Given Documented By: CUBA Non-Admin Reason: IV Running Vitamin D (Cholecalciferol (Vitamin D3) 25 Mcg Tablet) 25 mcg PO DAILY [facility] Last Admin: 08/09/23 08:18 Dose: 25 mcg Documented By: CUBA Vitamin D (Cholecalciferol (Vitamin D3) 25 Mcg Tablet) 25 mcg PO DAILY [facility] Last Admin: 08/09/23 08:18 Dose: Not Given Documented By: CUBA Non-Admin Reason: Duplicate Order Labs 08/09/23 08:29 08/08/23 07:00 Labs: Laboratory Results - last 24 hr 08/08/23 08/09/23 08/09/23 11:10 08:29 09:13 MCV 99.3 H 99.6 H MCH 33.7 H 34.0 H MCHC 34.0 34.1 RDW 14.2 14.1 Plt Count 294 280 MPV 9.1 L 9.3 L Absolute Nucleated RBC 0.000 0.000 Nucleated RBC % (auto) 0.0 0.0 POC Glucose 81 Blood Type O Positive Antibody Screen NEGATIVE Assessment and Plan (1) JHONNY (acute kidney injury): Status: Acute (2) Lymphoma: Status: Acute Plan Pt is an 83-year-old male with a PMH significant for?multiple myeloma on Revlimid, CAD, [place], and hypothyroidism who presents to the ED with?left lower quadrant abdominal pain and and rectal ?burning? with loose stools x7-10 days. Pt will be admitted to the hospital for treatment and further evaluation of JHONNY and intractable abdominal pain and diarrhea in the setting abdominal masses suspicious for lymphoma. Abdominal and rectal pain with diarrhea negative Cdif, gi panl + epec of unclear sinificance, diarrhea has gotten better but will add empiric levaquin large masslike area in small bowel mesentery and smaller mass in left psoas muscle suggestive of neoplastic process like lymphoma, as well with marked thickening of the rectum and ascending colon Pt with history of multiple myeloma x11 years, on Revlimid x2 years, though has not taking for the past 5 months due to travel, He is seen at the [facility] and has missed appointments Oncology consult, check [facility] record. JHONNY--likely pre renal d/t diarrhea, and possible obstructive uropathy, renal function is improvement, continue, IVF and follow BMP Metabolic acidosis---likely mixed disorder from decrease renal excretion and hyperchloremic metabolic acidosis from Normal saline. stop normal saline, add LR, oral Bicab replacement and nephrology evaluation Hyperkalemia--likely hemolysis, repeat is normal. Initial Hypotension--not due to sepsis, BP now better with IVF Macrocytic anemia H&H 8.9/26.2, baseline unknown Patient with history of multiple myeloma Stool positive for occult blood Follow H&H. For EGD/Colonoscopy today Lower leg edema Likely in the setting of possible lymphoma hold diuretics Multiple myeloma Diagnosed 11 years ago Started on Revlimid x2 years, but not taking for the past 5 months due to travel and has not been following up with [facility] CAD/Hx of OH Continue statin Hold Plavix Mood disorder Continue sertraline Full Code Attending:? DVT Prophylaxis: mechanical device d/t anemia, gib need for inpatient:ongoing management of JHONNY, GIB, anemia, diarrhea, abdominal Quality Stroke Does the patient have a stroke diagnosis?: No VTE Prior VTE?: No VTE Risk Level:: Medical - moderate - high VTE Device Contraindication: Treatment Not Indicated VTE Drug Contraindication: N/A - Med Ordered
[2023-08-09 09:47] LABS: Anion Gap 18 (12-20); Blood Urea Nitrogen 27 mg/dL (9-16); Calcium 7.6 mg/dL (8.4-10.2); Carbon Dioxide 17 mmol/L (22-29); Chloride 106 mmol/L (96-108); Creatinine Clr Calc Pharmacy 45.2; Estimated Glomerular Filt Rate 56; Glucose Random 78 mg/dL (60-115); Potassium 4.5 mmol/L (3.3-5.1); Sodium 136 mmol/L (135-145)
[2023-08-09] MEDS: cefTRIAXone sodium 1 GM in 0.9 % Sodium Chloride 50 ML IV (10:29)
--- NOTE | 2023-08-09 10:45 | MHC.SLORD ---
Addendum entered and electronically signed by ANTOINE Montilla 08/09/23 13:22: HOLTER SCANNING TECHNICIAN checked in w/ RN, pt had yet to go for procedure. Requested [place] text if pt returns before 3pm. Otherwise, recommend modified diet below if cleared by MD/medical team. HOLTER SCANNING TECHNICIAN to see pt tomorrow 08/09. Original Note: Speech Language Pathology Order Status: Pt NPO for EGD/colonoscopy. HOLTER SCANNING TECHNICIAN to see pt following procedure if time allows. Otherwise, recommend 08/07 HOLTER SCANNING TECHNICIAN recommendation if cleared by MD/medical team: CHOPPED/ADVANCED SOLIDS (NDD3) and THIN LIQUIDS. MEDS WHOLE with PUREE. CLOSE SUPERVISION at first to monitor tolerance.
--- NOTE | 2023-08-09 13:46 | HO.ANESPROP2 ---
[facility] Active Problems Active Problems: All Active Problems JHONNY (acute kidney injury) (Acute) Lymphoma (Acute) Past Medical History Medical History Myocardial infarction CAD (coronary artery disease) Hypertension Hypothyroidism Multiple myeloma Cognitive capacity: Given pt's anemia and vague cardiac history with no documentation, EKG obtained and cardiology consultated. Cardiology puts pt at a moderate to high cardiac risk. Dr Field aware and determines case must proceed. Surgical History History of Problems with Anesthesia: No Social History Social History Household Members: Spouse Housing: House Do you presently have visiting nurse or other home services: No Alcohol intake: former Patient Tobacco Use Status: Current everyday Tobacco user Cigarettes Per Day: 5 Second Hand Smoke Exposure: No service: No Meds Allergies Allergy/AdvReac Type Severity Reaction Status Date / Time No Known Allergies Allergy Verified 08/06/23 14:32 Active Medications: Current Medications Acetaminophen (Acetaminophen 325 Mg Tablet) 650 mg PO Q6H PRN PRN Reason: Pain, Mild (Pain Scale 1-3) Last Admin: 08/08/23 13:14 Dose: 650 mg Acyclovir (Acyclovir 200 Mg Capsule) 200 mg PO BID [facility] Last Admin: 08/09/23 08:17 Dose: 200 mg Hydromorphone HCl (Hydromorphone Hcl 0.5 Mg/0.5 Ml Syringe) 0.5 mg IVPUSH Q4H PRN; Protocol PRN Reason: Pain, Severe (Pain Scale 7-10) Last Admin: 08/08/23 16:27 Dose: 0.5 mg Ceftriaxone Sodium 1 gm/ (Sodium Chloride) 50 mls @ 100 mls/hr IV Q24H [facility] Last Infusion: 08/09/23 11:36 Dose: Infused Levothyroxine Sodium (Levothyroxine Sodium 175 Mcg Tablet) 175 mcg PO MoTuWeThFrSa@0600 [facility] Last Admin: 08/09/23 05:22 Dose: 175 mcg Levothyroxine Sodium (Levothyroxine Sodium 175 Mcg Tablet) 87.5 mcg PO Morgan@0600 [facility] Lidocaine (Lidocaine 5 % Ointment 35 Gm) 1 appl TOPICAL Q6H PRN; Protocol PRN Reason: Pain, Mild (Pain Scale 1-3) Melatonin (Melatonin 3 Mg Tablet) 6 mg PO BEDTIME PRN PRN Reason: Insomnia Metoprolol Succinate (Metoprolol Succinate Er 12.5 Mg Halftab.Er.24h) 12.5 mg PO DAILY [facility]; Protocol Last Admin: 08/09/23 08:17 Dose: 12.5 mg Ondansetron HCl (Ondansetron Hcl 4 Mg/2 Ml Vial) 4 mg IVPUSH Q8H PRN PRN Reason: Nausea and Vomiting Pravastatin Sodium (Pravastatin Sodium 40 Mg Tablet) 40 mg PO DAILY [facility] Last Admin: 08/09/23 08:17 Dose: 40 mg Sertraline HCl (Sertraline Hcl 100 Mg Tablet) 100 mg PO DAILY [facility] Last Admin: 08/09/23 08:17 Dose: 100 mg Sodium Bicarbonate (Sodium Bicarbonate 650 Mg Tablet) 650 mg PO BID [facility] Last Admin: 08/09/23 08:18 Dose: 650 mg Sodium Chloride (0.9 % Sodium Chloride Flush 3 Ml Syringe) 3 ml IVFLUSH QSHIFT [facility] Last Admin: 08/09/23 08:18 Dose: Not Given Vitamin D (Cholecalciferol (Vitamin D3) 25 Mcg Tablet) 25 mcg PO DAILY [facility] Last Admin: 08/09/23 08:18 Dose: 25 mcg Vitamin D (Cholecalciferol (Vitamin D3) 25 Mcg Tablet) 25 mcg PO DAILY [facility] Last Admin: 08/09/23 08:18 Dose: Not Given Home Medications ?Medication ?Instructions ?Recorded ?Confirmed ?Last Taken ?Type calcium carbonate 600 mg PO BID 08/06/23 08/07/23 Unknown History clopidogrel 75 mg tablet 75 mg PO DAILY 08/06/23 08/07/23 Unknown History pravastatin 40 mg tablet 40 mg PO DAILY 08/06/23 08/07/23 Unknown History sertraline 100 mg tablet 100 mg PO DAILY 08/06/23 08/07/23 Unknown History spironolactone 25 mg tablet 25 mg PO DAILY 08/06/23 08/07/23 Unknown History acyclovir 200 mg capsule 200 mg PO BID 08/07/23 08/07/23 Unknown History aspirin 81 mg tablet,delayed 81 mg PO DAILY 08/07/23 08/07/23 Unknown History release cholecalciferol (vitamin D3) 25 25 mcg PO DAILY 08/07/23 08/07/23 Unknown History mcg (1,000 unit) tablet levothyroxine 175 mcg tablet 87.5 mcg PO MORGAN 08/07/23 08/07/23 Unknown History levothyroxine 175 mcg tablet 175 mcg PO MOTUWETHFRSA 08/07/23 08/07/23 Unknown History lisinopril 5 mg tablet 2.5 mg PO DAILY 08/07/23 08/07/23 Unknown History loperamide 2 mg capsule 2 - 4 mg PO Q4H PRN diarrhea 08/07/23 08/07/23 Unknown History metoprolol succinate 25 mg 12.5 mg PO DAILY 08/07/23 08/07/23 Unknown History tablet,extended release 24 hr (Toprol XL) Exam Height,Weight and Vital Signs: Height 5 ft 8 in Weight 70.307 kg Last Vital Signs Temp 98.2 F 08/09/23 07:07 Pulse 87 08/09/23 07:07 Resp 19 08/09/23 07:07 BP 130/58 L 08/09/23 07:07 Pulse Ox 95 08/09/23 07:07 O2 Del Method Room Air 08/09/23 07:07 Pertinent Lab Results Pertinent Lab Results: Laboratory Tests 08/06/23 08/06/23 08/06/23 15:07 15:23 16:50 WBC 7.1 RBC 2.63 L Hgb 8.9 L Hct 26.2 L MCV 99.6 H MCH 33.8 H MCHC 34.0 RDW 14.1 Plt Count 317 MPV 8.9 L Immature Gran % (Auto) 0.6 H Neut % (Auto) 74.0 H Lymph % (Auto) 14.4 L [place] % (Auto) 9.1 Eos % (Auto) 1.5 Baso % (Auto) 0.4 Lymph # (Auto) 1.0 L [place] # (Auto) 0.7 Eos # (Auto) 0.1 Baso # (Auto) 0.0 Abs Immat Gran (auto) 0.04 H Absolute Neuts (auto) 5.3 Absolute Nucleated RBC 0.000 Nucleated RBC % (auto) 0.0 Sodium 135 Potassium 5.1 Chloride 104 Carbon Dioxide 16 L Anion Gap 20 BUN 35 H Creatinine 2.13 H Estim Creat Clear Calc 26.3 Estimated GFR 30 POC Glucose Random Glucose 84 Calcium 9.3 Magnesium 1.9 Total Bilirubin 0.1 AST 23 ALT 19 Alkaline Phosphatase 43 Total Protein 7.1 Albumin 4.1 Lipase 13 Urine Color Yellow Urine Appearance Turbid Urine pH 5.5 Ur Specific [place] 1.020 Urine Protein 100 (2+) H Urine Glucose (UA) Negative Urine Ketones Trace Urine Blood Trace H Urine Nitrite Negative Ur Leukocyte Esterase Negative Urine RBC 0-2 Urine WBC 0-5 Ur Squamous Epith Cells 11-20 Other Crystals Present Urine Bacteria None Seen Hyaline Casts 0-2 Granular Casts Present U Random Total Protein Ur Random Sodium Urine Creatinine Stool Occult Blood POSITIVE Stl C. cayetanensis PCR Stool Rotavirus A PCR Stl Adenov F 40/ PCR Stool Astrovirus (PCR) Stool Campylobacter PCR Stool Cryptosporidium PCR Stl Sh Tox Pr E STEC PCR Stool E coli O157 PCR Stl Enterotoxigenic E PCR Stool EPEC (PCR) Stool EAEC (PCR) Stl E. histolytica PCR Stool Giardia Lamblia PCR Stl P. shigelloides PCR Stool Salmonella PCR Stool Sapovirus (PCR) Stl Shigella/EIEC PCR St Y.enterocolitica PCR Stool Vibrio (PCR) Stl Vibrio cholerae PCR Stl Norovirus GI/GII PCR C. difficile Tox B Gene Blood Type Antibody Screen 08/06/23 08/07/23 08/07/23 20:18 07:37 13:18 WBC 4.5 L RBC 2.31 L Hgb 7.9 L Hct 23.1 L MCV 100.0 H MCH 34.2 H MCHC 34.2 RDW 14.3 Plt Count 257 MPV 9.0 L Immature Gran % (Auto) 0.4 Neut % (Auto) 60.5 Lymph % (Auto) 21.9 [place] % (Auto) 13.5 H Eos % (Auto) 3.5 Baso % (Auto) 0.2 Lymph # (Auto) 1.0 L [place] # (Auto) 0.6 Eos # (Auto) 0.2 Baso # (Auto) 0.0 Abs Immat Gran (auto) 0.02 Absolute Neuts (auto) 2.7 Absolute Nucleated RBC 0.000 Nucleated RBC % (auto) 0.0 Sodium 137 136 Potassium 5.6 H 5.0 Chloride 109 H 110 H Carbon Dioxide 15 L 14 L Anion Gap 19 17 BUN 33 H 30 H Creatinine 1.89 H 1.86 H Estim Creat Clear Calc 29.6 30.1 Estimated GFR 34 35 POC Glucose Random Glucose 68 75 Calcium 8.4 D 8.1 L Magnesium Total Bilirubin AST ALT Alkaline Phosphatase Total Protein Albumin Lipase Urine Color Urine Appearance Urine pH Ur Specific [place] Urine Protein Urine Glucose (UA) Urine Ketones Urine Blood Urine Nitrite Ur Leukocyte Esterase Urine RBC Urine WBC Ur Squamous Epith Cells Other Crystals Urine Bacteria Hyaline Casts Granular Casts U Random Total Protein Ur Random Sodium Urine Creatinine Stool Occult Blood Stl C. cayetanensis PCR Not Detected Stool Rotavirus A PCR Not Detected Stl Adenov F 40/41 PCR Not Detected Stool Astrovirus (PCR) Not Detected Stool Campylobacter PCR Not Detected Stool Cryptosporidium PCR Not Detected Stl Sh Tox Pr E STEC PCR Not Detected Stool E coli O157 PCR Not applicable Stl Enterotoxigenic E PCR Not Detected Stool EPEC (PCR) Detected A Stool EAEC (PCR) Not Detected Stl E. histolytica PCR Not Detected Stool Giardia Lamblia PCR Not Detected Stl P. shigelloides PCR Not Detected Stool Salmonella PCR Not Detected Stool Sapovirus (PCR) Not Detected Stl Shigella/EIEC PCR Not Detected St Y.enterocolitica PCR Not Detected Stool Vibrio (PCR) Not Detected Stl Vibrio cholerae PCR Not Detected Stl Norovirus GI/GII PCR See Comment C. difficile Tox B Gene NEGATIVE Blood Type Antibody Screen 08/07/23 08/08/23 08/08/23 16:15 07:00 11:10 WBC 7.5 RBC 2.67 L Hgb 9.0 L Hct 26.5 L MCV 99.3 H MCH 33.7 H MCHC 34.0 RDW 14.2 Plt Count 294 MPV 9.1 L Immature Gran % (Auto) Neut % (Auto) Lymph % (Auto) [place] % (Auto) Eos % (Auto) Baso % (Auto) Lymph # (Auto) [place] # (Auto) Eos # (Auto) Baso # (Auto) Abs Immat Gran (auto) Absolute Neuts (auto) Absolute Nucleated RBC 0.000 Nucleated RBC % (auto) 0.0 Sodium 136 Potassium 5.1 Chloride 110 H Carbon Dioxide 16 L Anion Gap 15 BUN 30 H Creatinine 1.53 H Estim Creat Clear Calc 36.6 Estimated GFR 44 POC Glucose Random Glucose 85 Calcium 8.4 Magnesium Total Bilirubin AST ALT Alkaline Phosphatase Total Protein Albumin Lipase Urine Color Urine Appearance Urine pH Ur Specific [place] Urine Protein Urine Glucose (UA) Urine Ketones Urine Blood Urine Nitrite Ur Leukocyte Esterase Urine RBC Urine WBC Ur Squamous Epith Cells Other Crystals Urine Bacteria Hyaline Casts Granular Casts U Random Total Protein 119 H Ur Random Sodium 62.0 Urine Creatinine 109.50 Stool Occult Blood Stl C. cayetanensis PCR Stool Rotavirus A PCR Stl Adenov F PCR Stool Astrovirus (PCR) Stool Campylobacter PCR Stool Cryptosporidium PCR Stl Sh Tox Pr E STEC PCR Stool E coli O157 PCR Stl Enterotoxigenic E PCR Stool EPEC (PCR) Stool EAEC (PCR) Stl E. histolytica PCR Stool Giardia Lamblia PCR Stl P. shigelloides PCR Stool Salmonella PCR Stool Sapovirus (PCR) Stl Shigella/EIEC PCR St Y.enterocolitica PCR Stool Vibrio (PCR) Stl Vibrio cholerae PCR Stl Norovirus GI/GII PCR C. difficile Tox B Gene Blood Type O Positive Antibody Screen NEGATIVE 08/09/23 08/09/23 08/09/23 08:26 08:29 09:13 WBC 6.9 RBC 2.50 L Hgb 8.5 L Hct 24.9 L MCV 99.6 H MCH 34.0 H MCHC 34.1 RDW 14.1 Plt Count 280 MPV 9.3 L Immature Gran % (Auto) Neut % (Auto) Lymph % (Auto) [place] % (Auto) Eos % (Auto) Baso % (Auto) Lymph # (Auto) [place] # (Auto) Eos # (Auto) Baso # (Auto) Abs Immat Gran (auto) Absolute Neuts (auto) Absolute Nucleated RBC 0.000 Nucleated RBC % (auto) 0.0 Sodium 136 Potassium 4.5 Chloride 106 Carbon Dioxide 17 L Anion Gap 18 BUN 27 H Creatinine 1.24 Estim Creat Clear Calc 45.2 Estimated GFR 56 POC Glucose 81 Random Glucose 78 Calcium 7.6 L D Magnesium Total Bilirubin AST ALT Alkaline Phosphatase Total Protein Albumin Lipase Urine Color Urine Appearance Urine pH Ur Specific [place] Urine Protein Urine Glucose (UA) Urine Ketones Urine Blood Urine Nitrite Ur Leukocyte Esterase Urine RBC Urine WBC Ur Squamous Epith Cells Other Crystals Urine Bacteria Hyaline Casts Granular Casts U Random Total Protein Ur Random Sodium Urine Creatinine Stool Occult Blood Stl C. cayetanensis PCR Stool Rotavirus A PCR Stl Adenov F PCR Stool Astrovirus (PCR) Stool Campylobacter PCR Stool Cryptosporidium PCR Stl Sh Tox Pr E STEC PCR Stool E coli O157 PCR Stl Enterotoxigenic E PCR Stool EPEC (PCR) Stool EAEC (PCR) Stl E. histolytica PCR Stool Giardia Lamblia PCR Stl P. shigelloides PCR Stool Salmonella PCR Stool Sapovirus (PCR) Stl Shigella/EIEC PCR St Y.enterocolitica PCR Stool Vibrio (PCR) Stl Vibrio cholerae PCR Stl Norovirus GI/GII PCR C. difficile Tox B Gene Blood Type Antibody Screen Airway Mallampati Class: III (poor dentition) TM Dist: >3cm Neck ROM: Limited Denture: Upper Loose/Missing/Broken Teeth: Yes, Upper and Lower Heart: RRR Lungs: CTA Assessment and Plan Assessment Anesthesia Assessment: Anesthesia Plan Discussed and Chart Reviewed Final Anesthetic Review History of Problems with Anesthesia: No NPO: Yes ASA Class: IV Final Preanesthetic Review: Meds/Allgs Chart Reviewed, Consent Obtained/Reviewed and Anes Risks/Benef Reviewed Patient Risk: High Procedure Risk: Intermediate Anesthetic Plan Anesthetic Plan: MAC: Disposition: Standard PACU
[2023-08-09 13:51] VITALS: BP 117/52; PULSE 76; RESP 18; TEMP 36.9; O2SAT 96; BMI 23.6
--- NOTE | 2023-08-09 14:23 | PC.NURSE ---
Patient has a h/o MT. Anesthesia ( Dr Gomes) has requested an EKG (to be done [facility]) and a Cardiology consult. Procedure expected to be postponed until tomorrow, once Cardiology consult is completed.
--- NOTE | 2023-08-09 14:57 | PM.EVENT ---
Event Note Date of Service: 08/09/23 Event Note: GI Mr Olga was seen by Dr Pennington and determined to be moderate to high risk for the egd/colon. Based on his clinical picture, I believe the procedures are medically necessary. I have discussed this with the patient and Dr Gomes. Time Spent With Patient Time: Total time managing care of this patient today ____ minutes.
--- NOTE | 2023-08-09 15:14 | P.CONCA_ITS ---
History of Present Illness History of Present Illness Date of Service: 08/09/23 Requesting physician: Amber Gomes Chief complaint: Preop CV risk assessment Narrative: 83 male who we have been ask to assess periop CV risk. He has multiple myeloma and has been on Revlimid. He has anemia and diarrhea ongoing for >[address] scan has raised concern for lymphoma and he is need of endoscopy and biopsy. He was told many years ago by his PCP that he had a heart attack in the past. He has never experienced CP and SOB. He is denying any CP or SOB. [facility] Past Medical History Medical History Myocardial infarction CAD (coronary artery disease) Hypertension Hypothyroidism Multiple myeloma Social History Social History Household Members: Spouse Housing: House Do you presently have visiting nurse or other home services: No Alcohol intake: former Patient Tobacco Use Status: Current everyday Tobacco user Cigarettes Per Day: 5 Second Hand Smoke Exposure: No service: No Meds Allergies Allergy/AdvReac Type Severity Reaction Status Date / Time No Known Allergies Allergy Verified 08/06/23 14:32 Active Medications: Current Medications Acetaminophen (Acetaminophen 325 Mg Tablet) 650 mg PO Q6H PRN PRN Reason: Pain, Mild (Pain Scale 1-3) Last Admin: 08/08/23 13:14 Dose: 650 mg Acyclovir (Acyclovir 200 Mg Capsule) 200 mg PO BID [facility] Last Admin: 08/09/23 08:17 Dose: 200 mg Hydromorphone HCl (Hydromorphone Hcl 0.5 Mg/0.5 Ml Syringe) 0.5 mg IVPUSH Q4H PRN; Protocol PRN Reason: Pain, Severe (Pain Scale 7-10) Last Admin: 08/08/23 16:27 Dose: 0.5 mg Ceftriaxone Sodium 1 gm/ (Sodium Chloride) 50 mls @ 100 mls/hr IV Q24H [facility] Last Infusion: 08/09/23 11:36 Dose: Infused Lactated Ringer's (Lr) 1,000 mls @ 100 mls/hr IVCONT .Q10H [facility] Last Admin: 08/09/23 14:09 Dose: 100 mls/hr Levothyroxine Sodium (Levothyroxine Sodium 175 Mcg Tablet) 175 mcg PO MoTuWeThFrSa@0600 [facility] Last Admin: 08/09/23 05:22 Dose: 175 mcg Levothyroxine Sodium (Levothyroxine Sodium 175 Mcg Tablet) 87.5 mcg PO Morgan@0600 [facility] Lidocaine (Lidocaine 5 % Ointment 35 Gm) 1 appl TOPICAL Q6H PRN; Protocol PRN Reason: Pain, Mild (Pain Scale 1-3) Melatonin (Melatonin 3 Mg Tablet) 6 mg PO BEDTIME PRN PRN Reason: Insomnia Metoprolol Succinate (Metoprolol Succinate Er 12.5 Mg Halftab.Er.24h) 12.5 mg PO DAILY [facility]; Protocol Last Admin: 08/09/23 08:17 Dose: 12.5 mg Ondansetron HCl (Ondansetron Hcl 4 Mg/2 Ml Vial) 4 mg IVPUSH Q8H PRN PRN Reason: Nausea and Vomiting Pravastatin Sodium (Pravastatin Sodium 40 Mg Tablet) 40 mg PO DAILY [facility] Last Admin: 08/09/23 08:17 Dose: 40 mg Sertraline HCl (Sertraline Hcl 100 Mg Tablet) 100 mg PO DAILY [facility] Last Admin: 08/09/23 08:17 Dose: 100 mg Sodium Bicarbonate (Sodium Bicarbonate 650 Mg Tablet) 650 mg PO BID [facility] Last Admin: 08/09/23 08:18 Dose: 650 mg Sodium Chloride (0.9 % Sodium Chloride Flush 3 Ml Syringe) [facility] Last Admin: 08/09/23 08:18 Dose: Not Given Vitamin D (Cholecalciferol (Vitamin D3) 25 Mcg Tablet) 25 mcg PO DAILY [facility] Last Admin: 08/09/23 08:18 Dose: 25 mcg Vitamin D (Cholecalciferol (Vitamin D3) 25 Mcg Tablet) 25 mcg PO DAILY [facility] Last Admin: 08/09/23 08:18 Dose: Not Given Home Medications ?Medication ?Instructions ?Recorded ?Confirmed ?Last Taken ?Type calcium carbonate 600 mg PO BID 08/06/23 08/07/23 Unknown History clopidogrel 75 mg tablet 75 mg PO DAILY 08/06/23 08/07/23 Unknown History pravastatin 40 mg tablet 40 mg PO DAILY 08/06/23 08/07/23 Unknown History sertraline 100 mg tablet 100 mg PO DAILY 08/06/23 08/07/23 Unknown History spironolactone 25 mg tablet 25 mg PO DAILY 08/06/23 08/07/23 Unknown History acyclovir 200 mg capsule 200 mg PO BID 08/07/23 08/07/23 Unknown History aspirin 81 mg tablet,delayed 81 mg PO DAILY 08/07/23 08/07/23 Unknown History release cholecalciferol (vitamin D3) 25 25 mcg PO DAILY 08/07/23 08/07/23 Unknown History mcg (1,000 unit) tablet levothyroxine 175 mcg tablet 87.5 mcg PO MORGAN 08/07/23 08/07/23 Unknown History levothyroxine 175 mcg tablet 175 mcg PO MOTUWETHFRSA 08/07/23 08/07/23 Unknown History lisinopril 5 mg tablet 2.5 mg PO DAILY 08/07/23 08/07/23 Unknown History loperamide 2 mg capsule 2 - 4 mg PO Q4H PRN diarrhea 08/07/23 08/07/23 Unknown History metoprolol succinate 25 mg 12.5 mg PO DAILY 08/07/23 08/07/23 Unknown History tablet,extended release 24 hr (Toprol XL) Physical Exam 2 Vital Signs: Vital Signs: Last Vital Signs Temp 98.5 F 08/09/23 13:51 Pulse 76 08/09/23 13:51 Resp 18 08/09/23 13:51 BP 117/52 L 08/09/23 13:51 Pulse Ox 96 08/09/23 13:51 O2 Del Method Room Air 08/09/23 13:51 BMI result Body Mass Index 23.6 GENERAL APPEARANCE: in no acute distress, thin. NECK: no carotid bruit, mild jugular venous distention. SKIN: no suspicious lesions, warm and dry. HEART: no murmurs, regular rate and rhythm. LUNGS: clear to auscultation bilaterally. ABDOMEN: soft, nontender. EXTREMITIES: no edema. PERIPHERAL PULSES: equal. NEUROLOGIC: No gross deficits, AAO X 3 Objective Labs and Meds 08/09/23 08:29 08/09/23 08:26 Lab results: Laboratory Results - last 24 hr 08/09/23 08/09/23 08/09/23 08:26 08:29 09:13 WBC 6.9 RBC 2.50 L Hgb 8.5 L Hct 24.9 L MCV 99.6 H MCH 34.0 H MCHC 34.1 RDW 14.1 Plt Count 280 MPV 9.3 L Absolute Nucleated RBC 0.000 Nucleated RBC % (auto) 0.0 Sodium 136 Potassium 4.5 Chloride 106 Carbon Dioxide 17 L Anion Gap 18 BUN 27 H Creatinine 1.24 Estim Creat Clear Calc 45.2 Estimated GFR 56 POC Glucose 81 Random Glucose 78 Calcium 7.6 L D Assessment and Plan (1) Preop cardiovascular exam: Status: Acute Plan 83 male with MM and chronic diarrhea and anemia. Imaging concerning for lymphoma. Denying any CP or SOB but not active. On aspirin and plavix but recent procedures. Has never had angioplasty. I have reviewed his chart at [facility] too. I think he is intermediate to high risk. He is in need of diagnosis for his symptoms and probably should be considered for endoscopy. Please page if any questions arise. Procedures Date of Service Date of Service: 08/09/23
--- NOTE | 2023-08-09 15:52 | MHC.CM.PN ---
EMR reviewed and per MD rounds, pt is not medically cleared for discharge due to pending EGD/colonoscopy.
[2023-08-09 15:56] VITALS: BP 121/62; PULSE 76; RESP 18; TEMP 36.6; O2SAT 99
--- NOTE | 2023-08-09 15:59 | P.BOP_ITS ---
Brief Operative Note Date of Service: 08/09/23 Pre-op diagnosis: dysphagia abnl ct scan colon Post-op diagnosis: same Procedure: EGD Colonoscopy Surgeon: Yonas Field MD Anesthesia: MAC Was an Baby [employer] Sales Consultant used for this Procedure?: No Estimated blood loss (mL): 5 Pathology: other Condition: stable Disposition: PACU
--- NOTE | 2023-08-09 16:00 | PM.EVENT ---
Event Note Date of Service: 08/09/23 Event Note: EGD Colonoscopy note dictated EGD shows erosive esophagitis Colonoscopy shows nonspecific rectal erythema, no active colitis. biopsies taken 2 small polyps removed. Rec ppi ordered, bid x 1 month then daily diet advanced proceed with IR biopsy of psoas or mesenteric lesions as per ct recommendations. Time Spent With Patient Time: Total time managing care of this patient today ____ minutes.
[2023-08-09 16:11] VITALS: BP 129/76; PULSE 74; RESP 18; TEMP 36.6; O2SAT 99
[2023-08-09 16:40] VITALS: BP 119/62; PULSE 80; RESP 20; TEMP 36.2; O2SAT 95
[2023-08-09] MEDS: Omeprazole 40 MG CAPSULE.DR PO (17:05)
[2023-08-09] MEDS: 0.9 % Sodium Chloride Flush 3 ML SYRINGE IVFLUSH (17:22)
[2023-08-09 19:29] VITALS: BP 124/59; PULSE 70; RESP 18; TEMP 36.2; O2SAT 96
--- NOTE | 2023-08-09 20:14 | P.PNNP_ITS ---
Subjective Subjective Date of Service: 08/09/23 Interval history: Events noted; All recent data reviewed Physical Exam 2 Vital Signs: Vital Signs: Last Vital Signs Temp 97.2 F 08/09/23 19:29 Pulse 70 08/09/23 19:29 Resp 18 08/09/23 19:29 BP 124/59 L 08/09/23 19:29 Pulse Ox 96 08/09/23 19:29 O2 Del Method Room Air 08/09/23 19:29 BMI result Body Mass Index 23.6 Const: General: comfortable and no acute distress HEENT: Head: Yes normocephalic Mouth: Normal oral and palatal mucosa present Eyes: EOM: EOMs intact bilaterally Neck: Neck: Yes supple Resp: Auscultation: clear to auscultation bilaterally Cardio: Jugular venous distension: no JVD Rate: regular rate GI: Palpation (GI): Soft to palpation Auscultation: normal bowel sounds : General: Yes no CVA tenderness Back/Spine/Pelvis: Back: no CVA tenderness Skin: General skin exam: no rashes or lesions noted Neuro: General: moves all extremities Objective Data Labs 08/09/23 08:29 08/09/23 08:26 Labs: Laboratory Results - last 24 hr 08/07/23 08/09/23 08/09/23 13:18 08:26 08:29 WBC 6.9 RBC 2.50 L Hgb 8.5 L Hct 24.9 L MCV 99.6 H MCH 34.0 H MCHC 34.1 RDW 14.1 Plt Count 280 MPV 9.3 L Absolute Nucleated RBC 0.000 Nucleated RBC % (auto) 0.0 Sodium 136 Potassium 4.5 Chloride 106 Carbon Dioxide 17 L Anion Gap 18 BUN 27 H Creatinine 1.24 Estim Creat Clear Calc 45.2 Estimated GFR 56 POC Glucose Random Glucose 78 Calcium 7.6 L D Stool Norovirus (PCR) SEE NOTE 08/09/23 09:13 WBC RBC Hgb Hct MCV MCH MCHC RDW Plt Count MPV Absolute Nucleated RBC Nucleated RBC % (auto) Sodium Potassium Chloride Carbon Dioxide Anion Gap BUN Creatinine Estim Creat Clear Calc Estimated GFR POC Glucose 81 Random Glucose Calcium Stool Norovirus (PCR) Procedures Date of Service Date of Service: 08/09/23 Assessment & Plan Assessment and plan (1) JHONNY (acute kidney injury): Status: Acute Plan JHONNY due to multifactorial etiology Serum creatinine improving C/W current supportive care for now Labs AM; Shall closely F/U Time Spent With Patient Time: . Progress Note: Quality Stroke Does the patient have a stroke diagnosis?: No
[2023-08-09] MEDS: HYDROmorphone HCl 0.5 MG/0.5 ML SYRINGE IVPUSH (22:02)
[2023-08-10] VITALS: BP 134/63; PULSE 57; RESP 18; TEMP 36.2; O2SAT 98
--- NOTE | 2023-08-10 02:33 | OP_ITS ---
DATE OF SERVICE: 08/09/2023 SURGEON: Yonas Field MD INDICATIONS: Dysphagia and abnormal CT scan of the colon. PREOPERATIVE DIAGNOSIS: POSTOPERATIVE DIAGNOSIS: PROCEDURE PERFORMED: Upper endoscopy, colonoscopy to the cecum with biopsy and snare polypectomy. ESTIMATED BLOOD LOSS: COMPLICATIONS: ANESTHESIA: Monitored anesthesia care. ASSISTANTS: SPECIMENS: DESCRIPTION OF PROCEDURE: History and physical was performed. The risks and benefits of the procedure were explained to the patient. Informed consent was obtained. The patient was placed in the left lateral decubitus position. The Olympus video gastroscope was introduced into the esophagus, stomach, and duodenum. Examination was performed. The scope was removed. He tolerated the procedure well and was repositioned for colonoscopy. Digital rectal exam was performed and was found to be normal. The Olympus pediatric video colonoscope was introduced into the rectum and advanced to the cecum. The cecum was identified by transillumination, palpation, and identification of ileocecal valve. Examination was performed. The scope was removed. He tolerated both procedures well and was returned to the recovery area in stable condition. FINDINGS: Upper endoscopy: 1. Esophagus: The esophagus showed erosive esophagitis over the last 5 cm of the esophagus. There was no active bleeding. There was a moderately large hiatal hernia. 2. Stomach: The stomach showed no evidence of masses, ulcers, or polyps. 3. Duodenum: The bulb and 2nd portion were normal. Colonoscopy: The terminal ileum was not examined. There was some liquid stool mainly in the right colon limiting the sensitivity examination for detection of small polyps. This was washed and suctioned. Two polyps were identified. The first was located in the right colon measuring approximately 5 mm. This was removed with a biopsy forceps. The second was located in the sigmoid at 40 cm, measuring approximately 8 mm. This was removed with a hot snare and recovered via suction. Random biopsies were obtained from the right colon, sigmoid, and rectum. In the rectum, there was some mild nonspecific erythema, possibly related to the prep. No definite mass was identified. The rectum was narrowed and did not permit retroflexion of the scope. The external anal area was excoriated and had barrier protective lotion on it. IMPRESSION: 1. Erosive esophagitis. 2. Colon polyps. 3. Nonspecific rectal irritation. RECOMMENDATION: 1. Follow up the biopsy results. 2. Proceed with biopsy of the abdominal mass as outlined in the radiology report from his admission CT scan. MD ROSA Ruvalcaba/RAVI / [id number]
[2023-08-10] MEDS: Lactated Ringers 1,000 ML 100 ML IVCONT ×2 (02:38→13:34)
[2023-08-10] MEDS: HYDROmorphone HCl 0.5 MG/0.5 ML SYRINGE IVPUSH ×3 (02:38→18:21)
[2023-08-10] MEDS: Lidocaine 5 % Ointment 35 GM 1 APPL TOPICAL (02:43)
[2023-08-10] MEDS: Levothyroxine Sodium 175 MCG TABLET PO (05:55)
[2023-08-10] MEDS: Omeprazole 40 MG CAPSULE.DR PO ×2 (05:55→15:14)
[2023-08-10 06:29] LABS: Anion Gap 15 (12-20); Blood Urea Nitrogen 24 mg/dL (9-16); Calcium 8.1 mg/dL (8.4-10.2); Carbon Dioxide 19 mmol/L (22-29); Chloride 107 mmol/L (96-108); Creatinine Clr Calc Pharmacy 50.9; Estimated Glomerular Filt Rate > 60; Glucose Random 80 mg/dL (60-115); Potassium 4.1 mmol/L (3.3-5.1); Sodium 137 mmol/L (135-145)
[2023-08-10 07:23] VITALS: BP 143/66; PULSE 56; RESP 20; TEMP 36.2; O2SAT 94
[2023-08-10] MEDS: Cholecalciferol (Vitamin D3) 25 MCG TABLET PO ×2 (07:59→08:00)
[2023-08-10] MEDS: Acyclovir 200 MG CAPSULE PO (07:59)
[2023-08-10] MEDS: Metoprolol Succinate ER 12.5 MG HALFTAB.ER.24H PO (07:59)
[2023-08-10] MEDS: Sertraline HCL 100 MG TABLET PO (07:59)
[2023-08-10] MEDS: Sodium Bicarbonate 650 MG TABLET PO (07:59)
[2023-08-10] MEDS: Pravastatin Sodium 40 MG TABLET PO (08:00)
[2023-08-10] MEDS: cefTRIAXone sodium 1 GM in 0.9 % Sodium Chloride 50 ML IV (09:39)
--- NOTE | 2023-08-10 10:37 | HO.PM.IMPN ---
Subjective Subjective Date of Service: 08/10/23 Interval History: He continues to have loose stool and in general doesn't feel good, loose stool has been ongoing since at least december last year. Has no fever EGD/Colonoscopy done yesterday Physical Exam Vital Signs: Vital Signs: Last Vital Signs Temp 97.1 F 08/10/23 07:23 Pulse 56 08/10/23 07:23 Resp 20 08/10/23 07:23 BP 143/66 H 08/10/23 07:23 Pulse Ox 94 08/10/23 07:23 O2 Del Method Room Air 08/10/23 07:23 BMI result Body Mass Index 23.6 General: AO X 3, no acute distress Resp: CTA bilateral CVS: S1,S2,RRR GI: +BS, NT, no distention Skin: No rash Neuro: motor grossly intact Psych: appropriate affect Objective Data Active Medications Acetaminophen (Acetaminophen 325 Mg Tablet) 650 mg PO Q6H PRN PRN Reason: Pain, Mild (Pain Scale 1-3) Last Admin: 08/08/23 13:14 Dose: 650 mg Documented By: PRASANNA Acyclovir (Acyclovir 200 Mg Capsule) 200 mg PO BID [facility] Last Admin: 08/10/23 07:59 Dose: 200 mg Documented By: PRASANNA Hydromorphone HCl (Hydromorphone Hcl 0.5 Mg/0.5 Ml Syringe) 0.5 mg IVPUSH Q4H PRN; Protocol PRN Reason: Pain, Severe (Pain Scale 7-10) Last Admin: 08/10/23 02:38 Dose: 0.5 mg Documented By: VERNA Ceftriaxone Sodium 1 gm/ (Sodium Chloride) 50 mls @ 100 mls/hr IV Q24H [facility] Last Infusion: 08/10/23 10:19 Dose: Infused Documented By: PRASANNA Lactated Ringer's (Lr) 1,000 mls @ 100 mls/hr IVCONT .Q10H [facility] Last Admin: 08/10/23 02:38 Dose: 100 mls/hr Documented By: VERNA Levothyroxine Sodium (Levothyroxine Sodium 175 Mcg Tablet) 175 mcg PO MoTuWeThFrSa@0600 [facility] Last Admin: 08/10/23 05:55 Dose: 175 mcg Documented By: VERNA Levothyroxine Sodium (Levothyroxine Sodium 175 Mcg Tablet) 87.5 mcg PO Morgan@0600 [facility] Lidocaine (Lidocaine 5 % Ointment 35 Gm) 1 appl TOPICAL Q6H PRN; Protocol PRN Reason: Pain, Mild (Pain Scale 1-3) Last Admin: 08/10/23 02:43 Dose: 1 appl Documented By: VERNA Melatonin (Melatonin 3 Mg Tablet) 6 mg PO BEDTIME PRN PRN Reason: Insomnia Metoprolol Succinate (Metoprolol Succinate Er 12.5 Mg Halftab.Er.24h) 12.5 mg PO DAILY [facility]; Protocol Last Admin: 08/10/23 07:59 Dose: 12.5 mg Documented By: PRASANNA Omeprazole (Omeprazole 40 Mg Capsule.Dr) 40 mg PO BID@0630,1630 [facility] Last Admin: 08/10/23 05:55 Dose: 40 mg Documented By: VERNA Ondansetron HCl (Ondansetron Hcl 4 Mg/2 Ml Vial) 4 mg IVPUSH Q8H PRN PRN Reason: Nausea and Vomiting Pravastatin Sodium (Pravastatin Sodium 40 Mg Tablet) 40 mg PO DAILY [facility] Last Admin: 08/10/23 08:00 Dose: 40 mg Documented By: PRASANNA Sertraline HCl (Sertraline Hcl 100 Mg Tablet) 100 mg PO DAILY [facility] Last Admin: 08/10/23 07:59 Dose: 100 mg Documented By: PRASANNA Sodium Bicarbonate (Sodium Bicarbonate 650 Mg Tablet) 650 mg PO BID [facility] Last Admin: 08/10/23 07:59 Dose: 650 mg Documented By: PRASANNA Sodium Chloride (0.9 % Sodium Chloride Flush 3 Ml Syringe) 3 ml IVFLUSH QSHIFT [facility] Last Admin: 08/10/23 08:06 Dose: Not Given Documented By: PRASANNA Non-Admin Reason: IV Running Vitamin D (Cholecalciferol (Vitamin D3) 25 Mcg Tablet) 25 mcg PO DAILY [facility] Last Admin: 08/10/23 07:59 Dose: 25 mcg Documented By: PRASANNA Vitamin D (Cholecalciferol (Vitamin D3) 25 Mcg Tablet) 25 mcg PO DAILY [facility] Last Admin: 08/10/23 08:00 Dose: 25 mcg Documented By: PRASANNA Labs 08/09/23 08:29 08/10/23 05:31 Labs: Laboratory Results - last 24 hr 08/07/23 08/10/23 13:18 05:31 Hold Purple Top SEE NOTE Anion Gap 15 Estim Creat Clear Calc 50.9 Estimated GFR > 60 Random Glucose 80 Calcium 8.1 L D Stool Norovirus (PCR) SEE NOTE Assessment and Plan (1) JHONNY (acute kidney injury): Status: Acute (2) Lymphoma: Status: Acute Plan Pt is an 83-year-old male with a PMH significant for?multiple myeloma on Revlimid, CAD, AL, and hypothyroidism who presents to the ED with?left lower quadrant abdominal pain and and rectal ?burning? with loose stools x7-10 days. Pt will be admitted to the hospital for treatment and further evaluation of JHONNY and intractable abdominal pain and diarrhea in the setting abdominal masses suspicious for lymphoma. Abdominal and rectal pain with diarrhea negative Cdif, gi panl + epec of unclear sinificance, diarrhea has been ongoing since december, empiric ceftriaxone large masslike area in small bowel mesentery and smaller mass in left psoas muscle suggestive of neoplastic process like lymphoma, as well with marked thickening of the rectum and ascending colon Pt with history of multiple myeloma x11 years, on Revlimid x2 years, though has not taking for the past 5 months due to travel, He is seen at the [facility] and has missed appointments Oncology consult, check [facility] record. Requesting tissue Biopsy of the mass JHONNY--likely pre renal d/t diarrhea, and possible obstructive uropathy, resolved Metabolic acidosis---likely mixed disorder from decrease renal excretion and hyperchloremic metabolic acidosis from Normal saline. stop normal saline, add LR, oral Bicab replacement and nephrology evaluation Hyperkalemia--likely hemolysis, repeat is normal. Initial Hypotension--not due to sepsis, BP now better with IVF Macrocytic anemia H&H 8.9/26.2, baseline unknown Patient with history of multiple myeloma Stool positive for occult blood EGD/colonoscopy: 08/08 by Emir EGD shows erosive esophagitis Colonoscopy shows nonspecific rectal erythema, no active colitis. biopsies taken 2 small polyps removed. Rec ppi ordered, bid x 1 month then daily diet advanced proceed with IR biopsy of psoas or mesenteric lesions as per ct recommendations. Lower leg edema Likely in the setting of possible lymphoma hold diuretics Multiple myeloma Diagnosed 11 years ago Started on Revlimid x2 years, but not taking for the past 5 months due to travel and has not been following up with [facility] CAD/Hx of AL Continue statin Hold Plavix, ASA d/t anemia and gib Mood disorder Continue sertraline Full Code Attending:? DVT Prophylaxis: mechanical device d/t anemia, gib need for inpatient:ongoing management of JHONNY, GIB, anemia, diarrhea, abdominal Quality Stroke Does the patient have a stroke diagnosis?: No VTE Prior VTE?: No VTE Risk Level:: Medical - moderate - high VTE Device Contraindication: Treatment Not Indicated VTE Drug Contraindication: N/A - Med Ordered
--- NOTE | 2023-08-10 11:28 | HO.POSTANES ---
Post Anesthesia Evaluation Post Anesthesia Evaluation Date of Service: 08/09/23 Vital Signs: Vital Signs Temp Pulse Resp BP Pulse Ox O2 Del Method 08/10/23 07:23 97.1 F 56 20 143/66 H 94 Room Air 08/10/23 00:00 97.1 F 57 18 134/63 98 Room Air Anesthesia: Monitored Mental Status: Awake Pain Control: Satisfactory Nausea/Vomiting: None Hydration: Adequate Anesthesia-Related Issues: No Anes. Related Issues
--- NOTE | 2023-08-10 11:49 | P.PNNP_ITS ---
Subjective Subjective Date of Service: 08/10/23 Interval history: Events noted Physical Exam 2 Vital Signs: Vital Signs: Last Vital Signs Temp 97.1 F 08/10/23 07:23 Pulse 56 08/10/23 07:23 Resp 20 08/10/23 07:23 BP 143/66 H 08/10/23 07:23 Pulse Ox 94 08/10/23 07:23 O2 Del Method Room Air 08/10/23 07:23 BMI result Body Mass Index 23.6 Const: General: comfortable and no acute distress HEENT: Head: Yes normocephalic Mouth: Normal oral and palatal mucosa present Eyes: EOM: EOMs intact bilaterally Neck: Neck: Yes supple Resp: Auscultation: clear to auscultation bilaterally Cardio: Jugular venous distension: no JVD Rate: regular rate GI: Palpation (GI): Soft to palpation Auscultation: normal bowel sounds : General: Yes no CVA tenderness Back/Spine/Pelvis: Back: no CVA tenderness Skin: General skin exam: no rashes or lesions noted Neuro: General: moves all extremities Objective Data Labs 08/09/23 08:29 08/10/23 05:31 Labs: Laboratory Results - last 24 hr 08/07/23 08/10/23 13:18 05:31 Hold Purple Top SEE NOTE Sodium 137 Potassium 4.1 Chloride 107 Carbon Dioxide 19 L Anion Gap 15 BUN 24 H Creatinine 1.10 Estim Creat Clear Calc 50.9 Estimated GFR > 60 Random Glucose 80 Calcium 8.1 L D Stool Norovirus (PCR) SEE NOTE Procedures Date of Service Date of Service: 08/14/23 Assessment & Plan Assessment and plan (1) JHONNY (acute kidney injury): Status: Acute Plan 83-year-old man with multiple myeloma S renal failure. He probably has a component of acute kidney injury superimposed on chronic kidney disease. Based on the imaging studies and clinical picture is suspect he has obstructive uropathy. Other possibilities including hypoperfusion from hypovolemia. Chronic kidney disease may be due to underlying multiple myeloma but this needs to be ruled out. Urine Pro: Cr 1.1 Recommendations Keep Guerra catheter. Watch urine output. Keep intake more than output. keep i>O Time Spent With Patient Time: Total time managing care of this patient today ____ minutes. Progress Note: Quality Stroke Does the patient have a stroke diagnosis?: No
--- NOTE | 2023-08-10 11:58 | MHC.CM.PN ---
PLAN IS FOR CT-GUIDED BIOPSY. POSSIBLE HERE VERSUS OUTPATIENT PROCEDURE. CM FOLLOWING FOR DC NEEDS.
[2023-08-10] MEDS: 0.9 % Sodium Chloride Flush 3 ML SYRINGE IVFLUSH (14:09)
--- NOTE | 2023-08-10 14:09 | PM.HEMONCCN ---
Subjective - Subjective Chief complaint: Diarrhea Patient: new to practice Consult date: 08/10/23 Requesting Physician: Dr. Montoya Primary Care Provider: Martine Gould MD HPI - Consult Narrative Reason for consult: Abdominal mass/malignancy Narrative: Pablo Espinoza is a 83 year old male with history of multiple myeloma who was on chemotherapy/D RD regimen until 01/09/2023 at [facility], currently admitted for abdominal pain and worsening loose stools. Patient states that he has been having chronic diarrhea for about a year and a half but he has developed abdominal pain in the last 2 weeks. Patient was taken off Revlimid in December, he went to visit his in [place] and and it abstaining there much longer than anticipated. He was supposed to have a follow-up with his primary oncologist, Dr. Soriano at [facility] this month. In the ED pt afebrile but hypotensive. Labs were significant for H&H of 8.9/ 26.2(baseline unknown), potassium 5.6, BUN 35, creatinine 2.13 with repeat 1.89 after IVF (baseline unknown). No leukocytosis. UA negative for UTI. Stool positive for occult blood. CT?of abdomen and pelvis found a large masslike area in the small bowel mesentery, smaller mass in the left psoas muscle, as well as ascites. Findings most suggestive of neoplastic process such as lymphoma. Also found marked thickening of the rectum and ascending colon with surrounding inflammatory change throughout the retroperitoneum, and mild bilateral hydronephrosis with hydroureter down to the level of the bladder with a markedly thickened bladder wall. Patient underwent EGD/colonoscopy on 08/09/2023 which revealed erosive gastroenteritis and nonspecific rectal erythema. He has been recommended biopsy of abdominal mass. Review of Systems - Constitutional Reports as per HPI, Reports lack of energy, Reports malaise, Reports weight loss - Cardiovascular Reports no additional cardiovascular complaints, Denies chest pain - Respiratory Reports no additional respiratory complaints, Denies cough - Gastrointestinal Reports abdominal pain, Denies black, tarry stools, Reports bloating, Reports constant urge to pass stool - Neurologic Denies focal weakness [facility] Medical History: Medical History (Last Reviewed 08/09/23 @ 14:59 by Amber Gomes MD) CAD (coronary artery disease) Hypertension Hypothyroidism Multiple myeloma Myocardial infarction Social History: Social History (Last Reviewed 08/09/23 @ 14:59 by Ambre Gomes MD) Living Situation History: Household Members: Spouse Housing: House Do you presently have visiting nurse or other home services: No Tobacco History: Patient Tobacco Use Status: Current everyday Tobacco Cigarettes Per Day: 5 Second Hand Smoke Exposure: No Occupation Assessmet: service: No Home Medications and Allergies Current Medications: Current Medications Acetaminophen (Acetaminophen 325 Mg Tablet) 650 mg PO Q6H PRN PRN Reason: Pain, Mild (Pain Scale 1-3) Last Admin: 08/08/23 13:14 Dose: 650 mg Acyclovir (Acyclovir 200 Mg Capsule) 200 mg PO BID [facility] Last Admin: 08/10/23 07:59 Dose: 200 mg Hydromorphone HCl (Hydromorphone Hcl 0.5 Mg/0.5 Ml Syringe) 0.5 mg IVPUSH Q4H PRN; Protocol PRN Reason: Pain, Severe (Pain Scale 7-10) Last Admin: 08/10/23 02:38 Dose: 0.5 mg Ceftriaxone Sodium 1 gm/ (Sodium Chloride) 50 mls @ 100 mls/hr IV Q24H [facility] Last Infusion: 08/10/23 10:19 Dose: Infused Lactated Ringer's (Lr) 1,000 mls @ 100 mls/hr IVCONT .Q10H [facility] Last Admin: 08/10/23 13:34 Dose: 100 mls/hr Levothyroxine Sodium (Levothyroxine Sodium 175 Mcg Tablet) 175 mcg PO MoTuWeThFrSa@0600 [facility] Last Admin: 08/10/23 05:55 Dose: 175 mcg Levothyroxine Sodium (Levothyroxine Sodium 175 Mcg Tablet) 87.5 mcg PO Matthew@0600 [facility] Lidocaine (Lidocaine 5 % Ointment 35 Gm) 1 appl TOPICAL Q6H PRN; Protocol PRN Reason: Pain, Mild (Pain Scale 1-3) Last Admin: 08/10/23 02:43 Dose: 1 appl Melatonin (Melatonin 3 Mg Tablet) 6 mg PO BEDTIME PRN PRN Reason: Insomnia Metoprolol Succinate (Metoprolol Succinate Er 12.5 Mg Halftab.Er.24h) 12.5 mg PO DAILY [facility]; Protocol Last Admin: 08/10/23 07:59 Dose: 12.5 mg Omeprazole (Omeprazole 40 Mg Capsule.Dr) 40 mg PO BID@0630,1630 [facility] Last Admin: 08/10/23 05:55 Dose: 40 mg Ondansetron HCl (Ondansetron Hcl 4 Mg/2 Ml Vial) 4 mg IVPUSH Q8H PRN PRN Reason: Nausea and Vomiting Pravastatin Sodium (Pravastatin Sodium 40 Mg Tablet) 40 mg PO DAILY [facility] Last Admin: 08/10/23 08:00 Dose: 40 mg Sertraline HCl (Sertraline Hcl 100 Mg Tablet) 100 mg PO DAILY [facility] Last Admin: 08/10/23 07:59 Dose: 100 mg Sodium Bicarbonate (Sodium Bicarbonate 650 Mg Tablet) 650 mg PO BID [facility] Last Admin: 08/10/23 07:59 Dose: 650 mg Sodium Chloride (0.9 % Sodium Chloride Flush 3 Ml Syringe) 3 ml IVFLUSH QSHIFT [facility] Last Admin: 08/10/23 08:06 Dose: Not Given Vitamin D (Cholecalciferol (Vitamin D3) 25 Mcg Tablet) 25 mcg PO DAILY [facility] Last Admin: 08/10/23 07:59 Dose: 25 mcg Vitamin D (Cholecalciferol (Vitamin D3) 25 Mcg Tablet) 25 mcg PO DAILY [facility] Last Admin: 08/10/23 08:00 Dose: 25 mcg Home Medications ?Medication ?Instructions ?Recorded ?Confirmed ?Type calcium carbonate 600 mg PO BID 08/06/23 08/07/23 History clopidogrel 75 mg tablet 75 mg PO DAILY 08/06/23 08/07/23 History pravastatin 40 mg tablet 40 mg PO DAILY 08/06/23 08/07/23 History sertraline 100 mg tablet 100 mg PO DAILY 08/06/23 08/07/23 History spironolactone 25 mg tablet 25 mg PO DAILY 08/06/23 08/07/23 History acyclovir 200 mg capsule 200 mg PO BID 08/07/23 08/07/23 History aspirin 81 mg tablet,delayed 81 mg PO DAILY 08/07/23 08/07/23 History release cholecalciferol (vitamin D3) 25 25 mcg PO DAILY 08/07/23 08/07/23 History mcg (1,000 unit) tablet levothyroxine 175 mcg tablet 87.5 mcg PO MATTHEW 08/07/23 08/07/23 History levothyroxine 175 mcg tablet 175 mcg PO MOTUWETHFRSA 08/07/23 08/07/23 History lisinopril 5 mg tablet 2.5 mg PO DAILY 08/07/23 08/07/23 History loperamide 2 mg capsule 2 - 4 mg PO Q4H PRN diarrhea 08/07/23 08/07/23 History metoprolol succinate 25 mg 12.5 mg PO DAILY 08/07/23 08/07/23 History tablet,extended release 24 hr (Toprol XL) Allergies Allergy/AdvReac Type Severity Reaction Status Date / Time No Known Allergies Allergy Verified 08/06/23 14:32 Physical Exam Vital signs: Vital Signs Temp 97.1 F 08/10/23 07:23 Pulse 56 08/10/23 07:23 Resp 20 08/10/23 07:23 BP 143/66 H 08/10/23 07:23 Pulse Ox 94 08/10/23 07:23 O2 Del Method Room Air 08/10/23 07:23 Intake & Output 08/09/23 08/10/23 08/10/23 18:59 06:59 18:59 Intake Total 1343.333 / 2896.666 1553.333 / 2896.666 1050 / 1050 Output Total 900 / 900 650 / 650 Balance 1343.333 / 1996.666 653.333 / 1996.666 400 / 400 Urine Output (Average ml/kg/hr) 1.07 0.77 Intake: Intake, Oral Amount 480 / 480 Intake, Other Amount 120 / 120 Intake, IV Amount 1343.333 / 2296.666 953.333 / 2296.666 1050 / 1050 cefTRIAXone sodium 1 gm In 0.9 50 / 50 50 / 50 % Sodium Chloride 50 ml @ 100 mls/hr IV Q24H [facility] Rx#: [id number] Lactated Ringers 1,000 ml @ 100 1293.333 / 2246.666 953.333 / 2246.666 1000 / 1000 mls/hr IVCONT .Q10H [facility] Rx#: [id number] Output: Output, Urine Amount 400 / 400 Output, Urine Amount (Catheter) 500 / 500 650 / 650 Urethral 500 / 500 650 / 650 Other: NPO Yes Dinner % Eaten 50% Eating (Feeding) Ability Independent Number of Bowel Movements 1 4 Urine Color Yellow Pale Yellow Last Bowel Movement 08/09/23 08/10/23 08/10/23 Stool Bedside Commode Bedside Commode Incontinent Stool Amount Large Small Large Stool Color Yellow Green Blue Stool Consistency Loose Liquid Loose Weight 70.307 kg Weight 70.307 kg - Constitutional Present: mild distress, thin, chronically ill appearing - Routine HEENT Exam Head: Present: normal inspection Eye: Present: conjunctivae pale, PERRL - Routine Neck Exam Absent: lymphadenopathy - Routine Respiratory Exam Present: decreased breath sounds - Routine Cardiovascular Exam Cardiovascular: Present: S1, S2 - Routine Abdominal Exam Present: distended, firm, mass - Routine Extremities Exam Absent: tenderness - Routine Skin Exam Present: intact. Absent: cyanosis - Routine Neurological Exam Present: alert, oriented X3 Hem/Onc Consult Result - Labs CBC & Chem 7: 08/09/23 08:29 08/10/23 05:31 Labs: BMP 08/10/23 05:31 Sodium 137 Potassium 4.1 Chloride 107 Carbon Dioxide 19 L BUN 24 H Creatinine 1.10 Calcium 8.1 L D Assessment and Plan Patient Active problem list reviewed?: Yes (1) Multiple myeloma Status: Acute Assessment and plan: 1. This is a 83-year-old male with past medical history significant for multiple myeloma (on DRd regimen until Dec 2022) who has been admitted for worsening diarrhea and abdominal pain. CT abdomen/pelvis without contrast revealed ill-defined heterogenous solid appearing mass in mesentry measuring 15.5 x 5.1 x 7.5 cm. Edematous changes and small bowel mesentery and in perirectal space. Free fluid present in the abdomen, around liver and spleen. Left psoas muscle is larger than right and lobular mass in the retrorenal area measuring 3.4 x 4.2 x 5.1 cm. Normal spleen, mild bilateral hydronephrosis without any obstructing mass or stone. Shotty retroperitoneal lymph nodes without gross lymphadenopathy. There was marked thickening of rectum and ascending colon with surrounding inflammatory changes. Patient has had GI workup, EGD/colonoscopy on 08/09/2023 was unremarkable. Acute kidney injury has improved with IV hydration. His symptoms appear to be related to abdominal mass which is suspicious for malignancy. He will need inpatient biopsy and treatment, I spoke to his primary oncologist Dr. Soriano at [facility]. She has recommended that patient be transferred for further evaluation and management. I thank you for the consult. - Time Spent With Patient Time Spent with Patient (in minutes): 30
--- NOTE | 2023-08-10 14:26 | MHC.SLORD ---
Speech Language Pathology Order Status: Attempted to see patient at lunch, patient was NPO pending CT guided biopsy procedure planned for today. 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
--- NOTE | 2023-08-10 14:32 | PM.DS ---
DS: Providers Provider Date of Service: 08/10/23 Date of admission: 08/06/23 22:44 Primary care physician: Martine Gould MD Consults: 08/06/23 21:33 Consult to Hematology / Oncology Routine Consulting Provider: Pankaj Granados Reason for consultation: small bowel mass 08/07/23 11:34 Consult to Nephrology Routine Consulting Provider: [facility] Reason for consultation: jhonny, metabolic acidosis Has provider been notified: No 08/07/23 11:54 Consult to Gastroenterology Routine Consulting Provider: Sidney Scott Reason for consultation: Diarrhea, rectal thickening, dysphagia 08/10/23 12:24 Consult to Hematology / Oncology Routine Consulting Provider: [facility] Oncology/Hematology Reason for consultation: h/o lymphoma, abdominal mass Has provider been notified: Yes DS: Diagnosis Discharge Diagnosis (1) JHONNY (acute kidney injury): Status: Acute DS: Summary Hospital Course Hospital Course: Chief Complaint: Abd pain, diarrhea Pt is an 83-year-old male with a PMH significant for?multiple myeloma on Revlimid, CAD, ID, and hypothyroidism who presents to the ED with?left lower quadrant abdominal pain and and rectal ?burning? with loose stools x7-10 days. Patient reports having to use the bathroom multiple times a day, sometimes as many as 3-4 times in a row where he will not make it back to his recliner before having to go back to the bathroom. Denies liquid diarrhea, but stool is loose. Denies melena or hematochezia, but has noticed bright red blood on toilet paper after wiping. Reports has recently had no appetite and not feeling like eating or drinking much. Also complains of recent acid reflux. Has noticed significant lower leg edema for the past 10-12 days. Denies shortness of breath, VALERIO, or orthopnea. Patient reports history of multiple myeloma for the past 11 years, though has been on Revlimid for only the past 2 years or so. However, patient has not been on Revlimid for the past 5 months after going to [place] to visit his who has advanced Alzheimer's and staying there for much longer than anticipated. Denies nausea, vomiting. No chest pain/pressure, palpitations. No fever, chills. In the ED pt was afebrile but was soft BP as low as 96/47. Labs were significant for H&H of 8.9/ 26.2(baseline unknown), potassium 5.6, BUN 35, creatinine 2.13 with repeat 1.89 after IVF (baseline unknown). No leukocytosis. UA negative for UTI. Stool positive for occult blood. Stool studies pending. CT?of abdomen and pelvis found a large masslike area in the small bowel mesentery they smaller mass in the left psoas muscle, as well as ascites. Findings most suggestive of neoplastic process such as lymphoma. Also found marked thickening of the rectum and ascending colon with surrounding inflammatory change throughout the retroperitoneum, and mild bilateral hydronephrosis with hydroureter down to the level of the bladder with a markedly thickened bladder wall. Pt was treated with 2 L IVF. Pt will be admitted to the hospital for treatment and further evaluation of JHONNY and intractable abdominal pain and diarrhea in the setting abdominal masses suspicious for lymphoma. Hospital course: 83-year-old male with a PMH significant for?multiple myeloma on Revlimid, CAD, ID, and hypothyroidism who presents to the ED with?left lower quadrant abdominal pain and and rectal ?burning? with loose stools x7-10 days, he has had diarrhea for months proably as far back as last December. He was found to have JHONNY and CT showing masses suspicious for lymphoma. Abdominal and rectal pain with diarrhea--He has had diarrhea for months with no change other than the abdominal pain and rectal pain, he has had episode of blood in stool. Cdif toxin was negative, stool panel PCR is postive for EPEC with significant unclear, however has been given empiric ceftriaxone with no notieceable change in diarreha, which again chronic and could be associated with small bowel lymphoma if the mass happens to be lymphome. Would give total of 5 days of ceftriaxone Large masslike area in small bowel mesentery and smaller mass in left psoas muscle suggestive of neoplastic process like lymphoma, as well with marked thickening of the rectum and ascending colon Pt with history of multiple myeloma x11 years, on Revlimid x2 years, though has not taking for the past 5 months due to travel. His oncologist is Dr. Calabrese.. It is suggested he procedess with [facility] for diagnosis and treatment. JHONNY--likely pre renal d/t diarrhea, and possible obstructive uropathy related to the mass a Guerra Catheter was inserted and given IVF and JHONNY has resolved with creatinine going from 2.13 to now 1.1 Metabolic acidosis---likely mixed disorder from decrease renal excretion, he is being given oral Bicab replacement. Normal saline should be avoided to prevent a compounded hyperchloremic metabolic acidosis. Hyperkalemia--likely hemolysis, repeat is normal. Initial Hypotension--not due to sepsis, BP resolved with IVF Macrocytic anemia H&H 8.9/26.2, baseline unknown Patient with history of multiple myeloma Stool positive for occult blood EGD/colonoscopy: 08/[address] Field EGD shows erosive esophagitis Colonoscopy shows nonspecific rectal erythema, no active colitis. biopsies taken 2 small polyps removed. Rec ppi ordered, bid x 1 month then daily diet advanced proceed with IR biopsy of psoas or mesenteric lesions as per ct recommendations. Lower leg edema--likely dependent edema and resolving Multiple myeloma Diagnosed 11 years ago Started on Revlimid x2 years, but not taking for the past 5 months due to travel and has not been following up with [facility] to follow up with Dr Calabrese CAD/Hx of ID Continue statin Holding Plavix, ASA d/t anemia and gib Mood disorder Continue sertraline Time Attestation Discharge Coordination Time (in mins): 40 Quality: Safe Use of Opioids Does Pt have an Active Cancer Diagnosis on the Problem List?: No Quality: Stroke Does the patient have a stroke diagnosis?: No Physical Exam Vital Signs: Vital Signs: Last Vital Signs Temp 97.1 F 08/10/23 07:23 Pulse 56 08/10/23 07:23 Resp 20 08/10/23 07:23 BP 143/66 H 08/10/23 07:23 Pulse Ox 94 08/10/23 07:23 O2 Del Method Room Air 08/10/23 07:23 BMI result Body Mass Index 23.6 DS: Data Data Completed and Pending Pending studies at discharge: Pending at discharge 08/09/23 15:40 Surgical [PTH] Routine Labs on day of discharge: Laboratory Results - last 24 hr 08/07/23 08/10/23 13:18 05:31 Hold Purple Top SEE NOTE Sodium 137 Potassium 4.1 Chloride 107 Carbon Dioxide 19 L Anion Gap 15 BUN 24 H Creatinine 1.10 Estim Creat Clear Calc 50.9 Estimated GFR > 60 Random Glucose 80 Calcium 8.1 L D Stool Norovirus (PCR) SEE NOTE Discharge Plan Discharge Anticipated Discharge Date/Time: 08/10/23 14:26 Patient Disposition: Xfer Acute Care Hospital Discharge Diagnosis: JHONNY, Diarrhea, Abdominal mass concern for lymphoma Referrals: Martine Gould MD [Primary Care Provider] - 1 Week Discharge Medications: Continued pravastatin 40 mg tablet 40 mg PO DAILY sertraline 100 mg tablet 100 mg PO DAILY spironolactone 25 mg tablet 25 mg PO DAILY calcium carbonate 600 mg calcium (1,500 mg) tablet 600 mg PO BID levothyroxine 175 mcg Tablet 175 mcg PO MOTUWETHFRSA metoprolol succinate [Toprol XL] 25 mg Tablet Extended Release 24 Hr 12.5 mg PO DAILY levothyroxine 175 mcg tablet 87.5 mcg PO MATTHEW loperamide 2 mg capsule 2 - 4 mg PO Q4H PRN (Reason: diarrhea) acyclovir 200 mg capsule 200 mg PO BID cholecalciferol (vitamin D3) 25 mcg (1,000 unit) tablet 25 mcg PO DAILY Discontinued clopidogrel 75 mg tablet 75 mg PO DAILY lisinopril 5 mg Tablet 2.5 mg PO DAILY aspirin [Aspirin Low-Strength] 81 mg Tablet,Delayed Release (Dr/Ec) 81 mg PO DAILY Diet: Advance to usual diet Activity on Discharge: As tolerated Stand Alone Forms: Patient Portal Discharge page Print Language: Bangladeshi Care Plan Goals: Full work up of abdominal mass and treatment of myeloma Health Concerns: samll bowel mass history of multiple myeloma renal failure Chronic diarrhea Plan of Treatment: Transfer to [facility] for further work and treatment Assessment: see above
[2023-08-10] MEDS: Nicotine 14 MG PATCH.TD24 TRANSDERMA (15:15)
[2023-08-10 15:21] VITALS: BP 122/59; PULSE 51; RESP 18; TEMP 36.3; O2SAT 92
[2023-08-10 15:32] LABS: COVID-19 Test Negative (Negative); IDNOW Serial# 6674DD1D
[2023-08-10 21:53] LABS: PES - Abn Protein Band 1 0.2 g/dL (NONE DETECTED); PES-Abn Protein Band 2 0.5 g/dL (NONE DETECTED); Prot Elec - Albumin 3.2 g/dL (3.8-4.8); Prot Elec - Alpha1 0.2 g/dL (0.2-0.3); Prot Elec - Alpha2 0.7 g/dL (0.5-0.9); Prot Elec - Beta 1 0.3 g/dL (0.4-0.6); Prot Elec - Beta 2 0.3 g/dL (0.2-0.5); Prot Elec - Gamma 1.1 g/dL (0.8-1.7); Prot Elec - Total Protein 5.8 g/dL (6.1-8.1)
--- NOTE | 2023-08-14 07:04 | P.CDIM_ITS ---
PROVIDER RESPONSE TEXT: To clarify, the appropriate diagnosis supported by the clinical indicators: Other (explain): mixed disorder QUERY TEXT: PHYSICIAN'S DOCUMENTATION REQUEST Date of Query: 08/08/2023 10:56 AM EDT Patient Name: Pablo Espinoza Admit Date: 08/07/2023 Dear Eliu Montoya, A review of the medical record indicates additional documentation may be needed. Please review below and update the documentation accordingly. Clinical Indicators: Per Hospitalist Progress Note 08/08/23: Metabolic acidosis---likely mixed disorder from decrease renal excretion and hyperchloremic metabolic acidosis from Normal saline. stop normal saline, add LR, oral Bicab replacement and nephrology evaluation Clarify which of the following accurately represents the acuity of the Metabolic acidosis. Possible options might include: Acute Acute on chronic Compensated Chronic stable condition Remission Other (explain) Clinically unable to determine (explain) Thank you, Deisy Perez RN Use of terms such as suspected, likely, concern for, or probable (associated with a specific diagnosi s that is being evaluated, monitored, or treated as if it exists) are acceptable and can be coded in the inpatient se tting, when documented at the time of discharge. Please use your independent medical judgment in providing your response. THIS QUERY IS PART OF THE PERMANENT MEDICAL RECORD
== END 2023-08-10 19:09 | disposition short-term general hospital (02) | DRG 372 ==
LOC: HO.ED 22:30 → HO.EDOVER 22:46 → HO.S3 08-07 03:26
PROVIDERS: Internal Medicine Gastroenterology; Internal Medicine Hypertension Specialist; Physician Assistant Medical; Admitting Provider Student in an Organized Health Care Education/Training Program; Emergency Provider Emergency Medicine; PCP Internal Medicine; Visit Provider Internal Medicine
PROC: 0DJ08ZZ Inspection of Upper Intestinal Tract, Via Natural or Artificial Opening Endoscopic (ICD-10-PCS; principal; 2023-08-09 14:30)
DX: A04.0 Enteropathogenic Escherichia coli infection (principal); C85.98 Non-Hodgkin lymphoma, unspecified, lymph nodes of multiple sites; N17.9 Acute kidney failure, unspecified; C90.00 Multiple myeloma not having achieved remission; K22.10 Ulcer of esophagus without bleeding; D63.0 Anemia in neoplastic disease; I95.9 Hypotension, unspecified; K63.5 Polyp of colon; E87.5 Hyperkalemia; K44.9 Diaphragmatic hernia without obstruction or gangrene; R13.10 Dysphagia, unspecified; E86.0 Dehydration; D53.9 Nutritional anemia, unspecified; I25.10 Atherosclerotic heart disease of native coronary artery without angina pectoris; E03.9 Hypothyroidism, unspecified; F17.210 Nicotine dependence, cigarettes, uncomplicated; Z20.822 Contact with and (suspected) exposure to COVID-19; Z71.6 Tobacco abuse counseling; Z79.82 Long term (current) use of aspirin; Z79.890 Hormone replacement therapy; Z79.899 Other long term (current) drug therapy
CPT/HCPCS: 36415; 74176; 80048; 80053; 81001; 82272; 82570; 82947; 83690; 83735; 84156; 84165; 84300; 85025; 85027; 86335; 86850; 86900; 86901; 87493; 87507; 87635; 88305; 92610; 92950; 93005; 99285; C1758; J0696; J1170; J1596; J1644; J2704; J7120

== ENCOUNTER 2023-08-06 22:44 | Outpatient (BNV) | payer MEDICARE, SELFPAY | END 2023-08-09 14:32 | PROVIDERS: Admitting Provider Student in an Organized Health Care Education/Training Program; Emergency Provider Emergency Medicine; PCP Internal Medicine; Visit Provider Internal Medicine Cardiovascular Disease | DX: R94.31 Abnormal electrocardiogram [ECG] [EKG] (principal) | CPT/HCPCS: 93010 ==

== ENCOUNTER → 2023-08-06 22:44 | Outpatient (BNV) | payer MEDICARE, SELFPAY | PROVIDERS: Admitting Provider Student in an Organized Health Care Education/Training Program; Emergency Provider Emergency Medicine; PCP Internal Medicine; Visit Provider Internal Medicine Cardiovascular Disease | DX: Z01.810 Encounter for preprocedural cardiovascular examination (principal) | CPT/HCPCS: 99223 ==

== ENCOUNTER → 2023-08-06 22:44 | Outpatient (BNV) | payer MEDICARE, SELFPAY | PROVIDERS: Admitting Provider Student in an Organized Health Care Education/Training Program; Emergency Provider Emergency Medicine; PCP Internal Medicine; Visit Provider Internal Medicine Hypertension Specialist | DX: C90.00 Multiple myeloma not having achieved remission (principal); N17.9 Acute kidney failure, unspecified | CPT/HCPCS: 99223; 99232 ==

== ENCOUNTER → 2023-08-06 22:44 | Outpatient (BNV) | payer MEDICARE, SELFPAY | PROVIDERS: Admitting Provider Student in an Organized Health Care Education/Training Program; Emergency Provider Emergency Medicine; PCP Internal Medicine; Visit Provider Student in an Organized Health Care Education/Training Program | DX: N17.9 Acute kidney failure, unspecified (principal); C85.90 Non-Hodgkin lymphoma, unspecified, unspecified site | CPT/HCPCS: 99232; 99239 ==

== ENCOUNTER → 2023-08-06 22:44 | Outpatient (BNV) | payer MEDICARE, SELFPAY | PROVIDERS: Admitting Provider Student in an Organized Health Care Education/Training Program; Emergency Provider Emergency Medicine; PCP Internal Medicine; Visit Provider Internal Medicine | DX: C90.00 Multiple myeloma not having achieved remission (principal); R10.9 Unspecified abdominal pain; R19.7 Diarrhea, unspecified | CPT/HCPCS: 99222 ==